=== PATIENT | male | born 1970 | race Hispanic/Latino ===

== ENCOUNTER → 2022-10-27 | Emergency (ER) | payer MEDICARE, BC ==
[~2022-10-27] VITALS: Ht 165.1 cm; Wt 68.0 kg
[~2022-10-27] MED LIST: ALBUTEROL; ALENDRONATE SOD10 MG PEG; ALENDRONATE SOD70 MG GT; ASPIR 8181 MG PEG; BONIVA; CALCIUM PEG; CARBIDOPA/LEVODOPA PEG; FENOFIBRATE160 MG PEG; FLEET ENEMA; GABAPENTIN PEG; GABLOFEN; JEVITY PEG; LACTULOSE20 GM/30 M GT; LANSOPRAZOLE PEG; MIRALAX; TRICOR145 MG GT; TYLENOL PEG; VALPROIC ACID PEG; ZOLOFT50 MG PEG; [UNRECOGNIZED DRUG - OTHER]
== END ==
LOC: ER 19:08
DX: Z43.1 Encounter for attention to gastrostomy (principal); R40.3 Persistent vegetative state; Z87.820 Personal history of traumatic brain injury
CPT/HCPCS: 99283

== ENCOUNTER 2022-10-28 18:06 | Emergency (ER) | payer MEDICARE, BC ==
[~2022-10-28] VITALS: Ht 165.1 cm; Wt 68.0 kg
== END 2022-10-28 18:29 ==
LOC: ER 18:13
DX: Z43.1 Encounter for attention to gastrostomy (principal); E11.9 Type 2 diabetes mellitus without complications; Z87.820 Personal history of traumatic brain injury
CPT/HCPCS: 99283

== ENCOUNTER 2022-11-01 20:23 | Emergency (ER) | payer MEDICARE, BC ==
[~2022-11-01] VITALS: Ht 165.1 cm; Wt 68.0 kg
[2022-11-01] MEDS ORDERED: DIATRIZOATE MEGL/DIATRIZOA SOD 30 ML BTL PO ONE (21:16)
== END 2022-11-01 23:50 | disposition home or self-care (01) ==
LOC: ER 20:26
DX: Z43.1 Encounter for attention to gastrostomy (principal); R50.9 Fever, unspecified; E78.5 Hyperlipidemia, unspecified; G82.50 Quadriplegia, unspecified; R40.3 Persistent vegetative state
CPT/HCPCS: 43762; 74018; 99284; Q9963

== ENCOUNTER 2022-11-05 21:34 | Emergency (ER) | payer MEDICARE, OTHER, BC ==
[~2022-11-05] VITALS: Ht 165.1 cm; Wt 68.0 kg
[2022-11-05 22:02] LABS: BASOPHILS % 0.1 % (0.0-1.0); EOSINOPHILS # (AUTO) 0.2 (0.0-0.4); EOSINOPHILS % 2.1 % (0.0-6.0); HEMATOCRIT 25.7 % (38.2-49.6); LYMPHOCYTES # (AUTO) 2.4 (1.0-3.2); LYMPHOCYTES % 27.2 % (18.0-39.1); MEAN CORPUSCULAR HEMOGLOBIN 28.5 pg (28-32); MEAN CORPUSCULAR HGB CONC 26.1 g/dL (31-35); MEAN CORPUSCULAR VOLUME 109.4 fL (81-99); MONOCYTES # (AUTO) 0.4 (0.2-0.8); MONOCYTES % 4.2 % (4.4-11.3); NEUTROPHILS # (AUTO) 5.6 (2.1-6.9); NEUTROPHILS % 64.1 % (38.7-80.0); PLATELET COUNT 240 x10e3/uL (140-360); RED BLOOD COUNT 2.35 x10e6/uL (4.3-5.7); RED CELL DISTRIBUTION WIDTH 19.7 % (11.7-14.4)
[2022-11-05 22:04] LABS: HEMOGLOBIN 6.7 g/dL (14.0-18.0)
[2022-11-05] MEDS ORDERED: SODIUM CHLORIDE 0.9% 250ML 250 ML IV ONE (22:15)
[2022-11-06] MEDS ORDERED: ACETAMINOPHEN 1000 MG/100 ML IV STA (01:34)
[2022-11-06] MEDS ORDERED: ACETAMINOPHEN 1000 MG/100 ML 100 ML IV ONE (01:40)
[2022-11-06 04:27] VITALS: BP 108/68
== END 2022-11-06 05:49 | disposition home or self-care (01) ==
LOC: ER 21:39
DX: D64.9 Anemia, unspecified (principal); E11.9 Type 2 diabetes mellitus without complications; E78.5 Hyperlipidemia, unspecified; Z79.82 Long term (current) use of aspirin; Z79.899 Other long term (current) drug therapy
CPT/HCPCS: 36415; 85025; 86850; 86900; 86920; 99284; J0131; J7050; P9016

== ENCOUNTER 2022-12-13 22:23 | Inpatient (IN) | payer MEDICARE, OTHER, BC ==
[~2022-12-13] VITALS: Ht 165.1 cm; Wt 54.4 kg
[2022-12-13 22:44] LABS: BASOPHILS % 0.3 % (0.0-1.0); EOSINOPHILS # (AUTO) 0.2 (0.0-0.4); EOSINOPHILS % 1.8 % (0.0-6.0); HEMATOCRIT 24.2 % (38.2-49.6); LYMPHOCYTES # (AUTO) 2.4 (1.0-3.2); LYMPHOCYTES % 24.7 % (18.0-39.1); MEAN CORPUSCULAR HEMOGLOBIN 26.6 pg (28-32); MEAN CORPUSCULAR HGB CONC 27.3 g/dL (31-35); MEAN CORPUSCULAR VOLUME 97.6 fL (81-99); MONOCYTES # (AUTO) 0.5 (0.2-0.8); MONOCYTES % 5.3 % (4.4-11.3); NEUTROPHILS # (AUTO) 6.7 (2.1-6.9); NEUTROPHILS % 67.5 % (38.7-80.0); PLATELET COUNT 541 x10e3/uL (140-360); RED BLOOD COUNT 2.48 x10e6/uL (4.3-5.7); RED CELL DISTRIBUTION WIDTH 15.2 % (11.7-14.4)
[2022-12-13 22:47] LABS: HEMOGLOBIN 6.7 g/dL (14.0-18.0)
[2022-12-13] MEDS ORDERED: SODIUM CHLORIDE 0.9% 250ML 250 ML IV ONE (23:00)
[2022-12-13 23:01] LABS: ALBUMIN 1.9 g/dL (3.5-5.0); ALBUMIN/GLOBULIN RATIO 0.2 (0.8-2.0); ALKALINE PHOSPHATASE 54 IU/L (40-150); ANION GAP 11.8 mmol/L (8-16); BLOOD UREA NITROGEN 36 mg/dL (7-26); BUN/CREATININE RATIO 25 (6-25); CALCIUM 8.7 mg/dL (8.4-10.2); CARBON DIOXIDE 31 mmol/L (22-29); CHLORIDE 97 mmol/L (98-107); CREATININE, SERUM 1.44 mg/dL (0.72-1.25); GLUCOSE 102 mg/dL (74-118); POTASSIUM 4.8 mmol/L (3.5-5.1); SODIUM 135 mmol/L (136-145)
[2022-12-13 23:02] LABS: ALANINE AMINOTRANSFERASE < 6 IU/L (0-55)
[2022-12-14 02:08] LABS: CLARITY,URINE SL CLOUDY (CLEAR); COLOR,URINE YELLOW (YELLOW); KETONES,URINE NEGATIVE (NEGATIVE); LEUKOCYTE ESTERASE ,URINE LARGE (NEGATIVE); NITRITE,URINE NEGATIVE (NEGATIVE); PROTEIN,URINE DIPSTICK 1+ (NEGATIVE); URINE UROBILINOGEN 0.2 mg/dL (0.2 - 1)
[2022-12-14 02:13] LABS: BACTERIA,URINE MODERATE /HPF; EPITHELIAL CELLS,URINE FEW /LPF; WBC,URINE (MAN) >50 /HPF (0-5)
[2022-12-14] MEDS ORDERED: CEFEPIME 2 GM in SODIUM CHLORIDE 0.9% 100 ML IV ONE (04:00)
[2022-12-14] MEDS ORDERED: ONDANSETRON HCL INJ 2MG/ML 2ML 2 MG/ML VIAL IV PRN (04:00)
[2022-12-14] MEDS: SODIUM CHLORIDE 0.9% 1000ML 1,000 ML IV SCH ×3 (04:31→21:03)
[2022-12-14 05:20] VITALS: BP 109/82
[2022-12-14] MEDS ORDERED: SODIUM CHLORIDE 0.9% 250ML 250 ML ONE (06:04)
[2022-12-14 08:00] VITALS: BP 144/89
[2022-12-14 08:22] VITALS: BP 144/89
[2022-12-14] MEDS ORDERED: SINEMET 25-1001 EACH PEG (08:30)
[2022-12-14] MEDS ORDERED: CALCIUM CARBON500 MG PEG (08:30)
[2022-12-14] MEDS ORDERED: SCOPOLAMINE1 EACH TOP (08:30)
[2022-12-14] MEDS ORDERED: FEROSUL325 MG PEG (08:30)
[2022-12-14] MEDS ORDERED: ALBUTEROL1.25 MG/3 NEB (08:30)
[2022-12-14] MEDS ORDERED: ZOLOFT50 MG PEG (08:30)
[2022-12-14] MEDS ORDERED: ACETAMINOP325 MG/10 PO (08:30)
[2022-12-14] MEDS ORDERED: ENULOSE10 GM/15 M PEG (08:30)
[2022-12-14] MEDS ORDERED: ASPIRIN81 MG PEG (08:30)
[2022-12-14] MEDS ORDERED: ACETAMIN-CODE12.5 ML PEG (08:30)
[2022-12-14] MEDS ORDERED: ALENDRONATE SOD70 MG PEG (08:30)
[2022-12-14] MEDS ORDERED: NEURONTIN300 MG PEG (08:30)
[2022-12-14] MEDS ORDERED: DOCUSATE S60 MG/15 M PEG (08:30)
[2022-12-14] MEDS ORDERED: IPRAT-ALBUT 0.5-3 ML INH (08:30)
[2022-12-14] MEDS ORDERED: FAMOTIDINE20 MG PO (08:30)
[2022-12-14] MEDS ORDERED: TIZANIDINE HCL4 M1 PO (08:30)
[2022-12-14] MEDS ORDERED: TRICOR145 MG PEG (08:30)
[2022-12-14] MEDS ORDERED: INSULIN GL100 UNIT/3 SC (08:30)
[2022-12-14] MEDS ORDERED: BISACODYL 10 MG SUPP PR ONE (08:45)
[2022-12-14] MEDS: SCOPOLAMINE 1 MG PATCH TOP SCH (09:00)
[2022-12-14] MEDS: CARBIDOPA/LEVODOPA 25/100 TAB PEG SCH ×2 (09:00→16:21)
[2022-12-14] MEDS: GABAPENTIN 300 MG CAP PEG SCH ×2 (09:00→16:21)
[2022-12-14] MEDS: FAMOTIDINE 20 MG TAB PO SCH ×2 (09:00→16:21)
[2022-12-14] MEDS: OYST-CAL-D 500MG TABLET PEG SCH ×2 (09:00→16:21)
[2022-12-14] MEDS: FERROUS SULFATE 325 MG TAB PEG SCH (09:00)
[2022-12-14] MEDS ORDERED: ACETAMINOPHEN 325 MG/10 ML UDC PO PRN (09:00)
[2022-12-14] MEDS: LACTULOSE SYRUP 20 GM/30 ML UDC PEG SCH (09:00)
[2022-12-14] MEDS ORDERED: ALENDRONATE SODIUM 70 MG TAB PEG SCH (09:00)
[2022-12-14] MEDS ORDERED: ACETAMINOPHEN/CODEINE ELIX 120-12 MG/5 ML UDC PEG PRN (09:30)
[2022-12-14] MEDS ORDERED: ALBUTEROL SULF 0.083% NEB SOLN 3 ML NEB NEB PRN (09:30)
[2022-12-14 10:15] LABS: BASOPHILS % 0.3 % (0.0-1.0); EOSINOPHILS # (AUTO) 0.1 (0.0-0.4); EOSINOPHILS % 0.3 % (0.0-6.0); HEMATOCRIT 38.8 % (38.2-49.6); HEMOGLOBIN 11.7 g/dL (14.0-18.0); LYMPHOCYTES # (AUTO) 1.9 (1.0-3.2); LYMPHOCYTES % 12.9 % (18.0-39.1); MEAN CORPUSCULAR HEMOGLOBIN 28.2 pg (28-32); MEAN CORPUSCULAR HGB CONC 30.2 g/dL (31-35); MEAN CORPUSCULAR VOLUME 93.5 fL (81-99); MONOCYTES # (AUTO) 0.6 (0.2-0.8); MONOCYTES % 4.1 % (4.4-11.3); NEUTROPHILS # (AUTO) 11.7 (2.1-6.9); NEUTROPHILS % 81.8 % (38.7-80.0); PLATELET COUNT 639 x10e3/uL (140-360); RED BLOOD COUNT 4.15 x10e6/uL (4.3-5.7); RED CELL DISTRIBUTION WIDTH 14.7 % (11.7-14.4)
[2022-12-14 10:33] LABS: ALBUMIN/GLOBULIN RATIO 0.2 (0.8-2.0); ANION GAP 15.5 mmol/L (8-16); CREATININE, SERUM 1.33 mg/dL (0.72-1.25); POTASSIUM 4.5 mmol/L (3.5-5.1)
[2022-12-14] MEDS: ALBUTEROL/IPRATROPIUM 3 ML NEB INH SCH ×4 (11:00→23:01)
[2022-12-14 12:26] VITALS: BP 119/86
[2022-12-14] MEDS: CEFEPIME 2 GM in SODIUM CHLORIDE 0.9% 100 ML IV SCH ×2 (13:16→21:02)
[2022-12-14] MEDS: DOCUSATE SODIUM LIQD 100 MG/10 ML UDC PEG SCH (16:21)
[2022-12-14] MEDS: TIZANIDINE HCL 4 MG TAB PO SCH ×2 (16:22→21:03)
[2022-12-14 16:50] VITALS: BP 102/79
[2022-12-14 20:00] VITALS: BP 126/78
[2022-12-14] MEDS: SERTRALINE HCL 50 MG TAB PEG SCH (21:03)
[2022-12-15] VITALS (7 sets, daily range): BP systolic 92–137; BP diastolic 57–85
[2022-12-15] MEDS: ALBUTEROL/IPRATROPIUM 3 ML NEB INH SCH ×6 (02:50→23:30)
[2022-12-15 04:45] LABS: BASOPHILS % 0.3 % (0.0-1.0); EOSINOPHILS # (AUTO) 0.1 (0.0-0.4); EOSINOPHILS % 0.7 % (0.0-6.0); HEMATOCRIT 37.9 % (38.2-49.6); HEMOGLOBIN 11.1 g/dL (14.0-18.0); LYMPHOCYTES # (AUTO) 2.5 (1.0-3.2); LYMPHOCYTES % 16.3 % (18.0-39.1); MEAN CORPUSCULAR HGB CONC 29.3 g/dL (31-35); MEAN CORPUSCULAR VOLUME 95.7 fL (81-99); MONOCYTES # (AUTO) 0.7 (0.2-0.8); MONOCYTES % 4.9 % (4.4-11.3); NEUTROPHILS # (AUTO) 11.7 (2.1-6.9); NEUTROPHILS % 77.5 % (38.7-80.0); PLATELET COUNT 514 x10e3/uL (140-360); RED BLOOD COUNT 3.96 x10e6/uL (4.3-5.7)
[2022-12-15 05:07] LABS: ALBUMIN 1.7 g/dL (3.5-5.0); ALBUMIN/GLOBULIN RATIO 0.2 (0.8-2.0); ALKALINE PHOSPHATASE 53 IU/L (40-150); ANION GAP 12.3 mmol/L (8-16); BLOOD UREA NITROGEN 31 mg/dL (7-26); BUN/CREATININE RATIO 25 (6-25); CALCIUM 8.6 mg/dL (8.4-10.2); CARBON DIOXIDE 25 mmol/L (22-29); CHLORIDE 107 mmol/L (98-107); CREATININE, SERUM 1.23 mg/dL (0.72-1.25); GLUCOSE 127 mg/dL (74-118); POTASSIUM 4.3 mmol/L (3.5-5.1); SODIUM 140 mmol/L (136-145)
[2022-12-15 05:08] LABS: ALANINE AMINOTRANSFERASE < 6 IU/L (0-55)
[2022-12-15] MEDS: TIZANIDINE HCL 4 MG TAB PO SCH ×3 (06:30→21:43)
[2022-12-15] MEDS: FERROUS SULFATE 325 MG TAB PEG SCH (09:45)
[2022-12-15] MEDS: DOCUSATE SODIUM LIQD 100 MG/10 ML UDC PEG SCH ×2 (09:45→17:28)
[2022-12-15] MEDS: OYST-CAL-D 500MG TABLET PEG SCH ×2 (09:45→17:28)
[2022-12-15] MEDS: GABAPENTIN 300 MG CAP PEG SCH ×2 (09:45→17:28)
[2022-12-15] MEDS: CEFEPIME 2 GM in SODIUM CHLORIDE 0.9% 100 ML IV SCH ×2 (09:45→21:42)
[2022-12-15] MEDS: LACTULOSE SYRUP 20 GM/30 ML UDC PEG SCH (09:45)
[2022-12-15] MEDS: CARBIDOPA/LEVODOPA 25/100 TAB PEG SCH ×2 (09:46→17:28)
[2022-12-15] MEDS: FAMOTIDINE 20 MG TAB PO SCH ×2 (09:46→17:28)
[2022-12-15] MEDS: SODIUM CHLORIDE 0.9% 1000ML 1,000 ML IV SCH (17:27)
[2022-12-15] MEDS: SERTRALINE HCL 50 MG TAB PEG SCH (21:42)
[2022-12-16] VITALS (8 sets, daily range): BP systolic 100–119; BP diastolic 58–75
[2022-12-16] MEDS: SODIUM CHLORIDE 0.9% 1000ML 1,000 ML IV SCH (01:35)
[2022-12-16] MEDS: ALBUTEROL/IPRATROPIUM 3 ML NEB INH SCH ×6 (03:02→23:10)
[2022-12-16] MEDS: TIZANIDINE HCL 4 MG TAB PO SCH ×3 (05:31→22:00)
[2022-12-16 06:01] LABS: BASOPHILS # (AUTO) 0.1 (0.0-0.1); BASOPHILS % 0.5 % (0.0-1.0); EOSINOPHILS # (AUTO) 0.3 (0.0-0.4); EOSINOPHILS % 2.7 % (0.0-6.0); HEMATOCRIT 29.6 % (38.2-49.6); HEMOGLOBIN 8.8 g/dL (14.0-18.0); LYMPHOCYTES # (AUTO) 2.6 (1.0-3.2); LYMPHOCYTES % 25.8 % (18.0-39.1); MEAN CORPUSCULAR HEMOGLOBIN 27.8 pg (28-32); MEAN CORPUSCULAR HGB CONC 29.7 g/dL (31-35); MEAN CORPUSCULAR VOLUME 93.4 fL (81-99); MONOCYTES # (AUTO) 0.6 (0.2-0.8); MONOCYTES % 6.2 % (4.4-11.3); NEUTROPHILS # (AUTO) 6.3 (2.1-6.9); NEUTROPHILS % 64.3 % (38.7-80.0); PLATELET COUNT 395 x10e3/uL (140-360); RED BLOOD COUNT 3.17 x10e6/uL (4.3-5.7); RED CELL DISTRIBUTION WIDTH 15.5 % (11.7-14.4)
[2022-12-16 06:19] LABS: ALBUMIN 1.5 g/dL (3.5-5.0); ALBUMIN/GLOBULIN RATIO 0.2 (0.8-2.0); ALKALINE PHOSPHATASE 45 IU/L (40-150); ANION GAP 9.5 mmol/L (8-16); BLOOD UREA NITROGEN 24 mg/dL (7-26); BUN/CREATININE RATIO 24 (6-25); CALCIUM 7.8 mg/dL (8.4-10.2); CARBON DIOXIDE 28 mmol/L (22-29); CHLORIDE 113 mmol/L (98-107); CREATININE, SERUM 1.01 mg/dL (0.72-1.25); GLUCOSE 121 mg/dL (74-118); POTASSIUM 3.5 mmol/L (3.5-5.1); SODIUM 147 mmol/L (136-145)
[2022-12-16 06:22] LABS: ALANINE AMINOTRANSFERASE < 6 IU/L (0-55)
[2022-12-16] MEDS: LACTULOSE SYRUP 20 GM/30 ML UDC PEG SCH (09:41)
[2022-12-16] MEDS: FERROUS SULFATE 325 MG TAB PEG SCH (09:41)
[2022-12-16] MEDS: DOCUSATE SODIUM LIQD 100 MG/10 ML UDC PEG SCH ×2 (09:41→16:21)
[2022-12-16] MEDS: FAMOTIDINE 20 MG TAB PO SCH ×2 (09:42→16:22)
[2022-12-16] MEDS: CEFEPIME 2 GM in SODIUM CHLORIDE 0.9% 100 ML IV SCH ×2 (09:42→21:00)
[2022-12-16] MEDS: GABAPENTIN 300 MG CAP PEG SCH ×2 (09:42→16:21)
[2022-12-16] MEDS: OYST-CAL-D 500MG TABLET PEG SCH ×2 (09:44→16:22)
[2022-12-16] MEDS: CARBIDOPA/LEVODOPA 25/100 TAB PEG SCH ×2 (09:44→16:22)
[2022-12-16] MEDS ORDERED: POTASSIUM CHLORIDE 10MEQ EA PO ONE (09:45)
[2022-12-16] MEDS ORDERED: ONDANSETRON HCL 4 MG ORAL DISINTEGRATING TAB PO PRN (11:30)
[2022-12-16] MEDS: SERTRALINE HCL 50 MG TAB PEG SCH (21:00)
[2022-12-17] VITALS: BP 129/90
[2022-12-17] MEDS: ALBUTEROL/IPRATROPIUM 3 ML NEB INH SCH ×3 (03:20→10:59)
[2022-12-17 04:54] LABS: BASOPHILS # (AUTO) 0.1 (0.0-0.1); BASOPHILS % 0.6 % (0.0-1.0); EOSINOPHILS # (AUTO) 0.4 (0.0-0.4); HEMATOCRIT 31.2 % (38.2-49.6); HEMOGLOBIN 9.2 g/dL (14.0-18.0); LYMPHOCYTES # (AUTO) 2.7 (1.0-3.2); LYMPHOCYTES % 31.9 % (18.0-39.1); MEAN CORPUSCULAR HEMOGLOBIN 27.7 pg (28-32); MEAN CORPUSCULAR HGB CONC 29.5 g/dL (31-35); MONOCYTES # (AUTO) 0.5 (0.2-0.8); MONOCYTES % 6.2 % (4.4-11.3); NEUTROPHILS # (AUTO) 4.7 (2.1-6.9); NEUTROPHILS % 55.8 % (38.7-80.0); PLATELET COUNT 421 x10e3/uL (140-360); RED BLOOD COUNT 3.32 x10e6/uL (4.3-5.7); RED CELL DISTRIBUTION WIDTH 15.9 % (11.7-14.4)
[2022-12-17 05:14] LABS: ALBUMIN 1.7 g/dL (3.5-5.0); ALBUMIN/GLOBULIN RATIO 0.2 (0.8-2.0); ANION GAP 11.1 mmol/L (8-16); CALCIUM 8.9 mg/dL (8.4-10.2); CREATININE, SERUM 1.01 mg/dL (0.72-1.25); POTASSIUM 4.1 mmol/L (3.5-5.1)
[2022-12-17] MEDS: TIZANIDINE HCL 4 MG TAB PO SCH (05:57)
[2022-12-17] MEDS ORDERED: Vancomycin IV 1 GM in SODIUM CHLORIDE 0.9% 250ML 250 ML IV SCH (07:45)
[2022-12-17] MEDS: CEFEPIME 2 GM in SODIUM CHLORIDE 0.9% 100 ML IV SCH (08:05)
[2022-12-17 08:14] VITALS: BP 100/72
[2022-12-17] MEDS ORDERED: CEFEPIME 2 GM in SODIUM CHLORIDE 0.9% 100 ML IV SCH (09:00)
[2022-12-17] MEDS: LACTULOSE SYRUP 20 GM/30 ML UDC PEG SCH (10:20)
[2022-12-17] MEDS: DOCUSATE SODIUM LIQD 100 MG/10 ML UDC PEG SCH (10:20)
[2022-12-17] MEDS: FERROUS SULFATE 325 MG TAB PEG SCH (10:20)
[2022-12-17] MEDS: SCOPOLAMINE 1 MG PATCH TOP SCH (10:21)
[2022-12-17] MEDS: FAMOTIDINE 20 MG TAB PO SCH (10:21)
[2022-12-17] MEDS: GABAPENTIN 300 MG CAP PEG SCH (10:21)
[2022-12-17] MEDS: OYST-CAL-D 500MG TABLET PEG SCH (10:21)
[2022-12-17] MEDS: CARBIDOPA/LEVODOPA 25/100 TAB PEG SCH (10:21)
== END 2022-12-17 11:27 | DRG 871 ==
LOC: ER 22:30 → ERHOLD 12-14 03:59 → MED/SURG 12-14 05:14
PROVIDERS: ADMIT Internal Medicine; ATTEND Internal Medicine
PROC: 30233N1 Transfusion of Nonautologous Red Blood Cells into Peripheral Vein, Percutaneous Approach (ICD-10-PCS; principal; 2022-12-14)
PROC: 3E03329 Introduction of Other Anti-infective into Peripheral Vein, Percutaneous Approach (ICD-10-PCS; 2022-12-14)
DX: A41.9 Sepsis, unspecified organism (principal); E43 Unspecified severe protein-calorie malnutrition; G82.50 Quadriplegia, unspecified; J15.6 Pneumonia due to other Gram-negative bacteria; D62 Acute posthemorrhagic anemia; N17.9 Acute kidney failure, unspecified; K59.2 Neurogenic bowel, not elsewhere classified; N13.2 Hydronephrosis with renal and ureteral calculous obstruction; D68.8 Other specified coagulation defects; N39.0 Urinary tract infection, site not specified; R31.0 Gross hematuria; Z87.820 Personal history of traumatic brain injury; Z68.20 Body mass index [BMI] 20.0-20.9, adult; R33.9 Retention of urine, unspecified; N31.9 Neuromuscular dysfunction of bladder, unspecified; K59.00 Constipation, unspecified; E27.9 Disorder of adrenal gland, unspecified; Z20.822 Contact with and (suspected) exposure to COVID-19; E11.69 Type 2 diabetes mellitus with other specified complication; D63.8 Anemia in other chronic diseases classified elsewhere; Z93.0 Tracheostomy status; I12.9 Hypertensive chronic kidney disease with stage 1 through stage 4 chronic kidney disease, or unspecified chronic kidney disease; E11.22 Type 2 diabetes mellitus with diabetic chronic kidney disease; N18.9 Chronic kidney disease, unspecified
CPT/HCPCS: 36415; 51700; 71045; 74176; 80053; 81001; 82948; 83605; 84165; 85025; 86850; 86900; 86920; 87040; 87070; 87086; 87186; 87205; 93005; 94799; 96361; 99252; 99284; J0692; J3370; J7030; J7050; P9016

== ENCOUNTER 2022-12-26 17:47 | Inpatient (IN) | payer MEDICARE, OTHER, BC ==
[2022-12-26] VITALS (14 sets, daily range): BP systolic 95–113; BP diastolic 70–85
[~2022-12-26] VITALS: Ht 165.1 cm; Wt 52.4 kg
[~2022-12-26 17:47] MED LIST changes: +ACETAMIN-CODE12.5 ML PEG; +ACETAMINOP325 MG/10 PO; +ALBUTEROL1.25 MG/3 NEB; +ALENDRONATE SOD70 MG PEG; +ASPIRIN81 MG PEG; +CALCIUM CARBON500 MG PEG; +DOCUSATE S60 MG/15 M PEG; +ENULOSE10 GM/15 M PEG; +FAMOTIDINE20 MG PO; +FEROSUL325 MG PEG; +INSULIN GL100 UNIT/3 SC; +IPRAT-ALBUT 0.5-3 ML INH; +NEURONTIN300 MG PEG; +SCOPOLAMINE1 EACH TOP; +SINEMET 25-1001 EACH PEG; +TIZANIDINE HCL4 M1 PO; +TRICOR145 MG PEG
[2022-12-26] MEDS ORDERED: ACETAMINOPHEN 1000 MG/100 ML IV ONE (18:02)
[2022-12-26] MEDS ORDERED: SODIUM CHLORIDE 0.9% IV ONE (18:15)
[2022-12-26] MEDS: Vancomycin IV 1 GM in SODIUM CHLORIDE 0.9% 250ML 250 ML IV SCH ×2 (18:15→19:00)
[2022-12-26] MEDS ORDERED: SODIUM CHLORIDE 0.9% 250ML 250 ML IV ONE (18:45)
[2022-12-26] MEDS ORDERED: SODIUM CHLORIDE 0.9% 1000ML 1,000 ML IV ONE ×2 (18:45)
[2022-12-26 18:50] LABS: BASOPHILS % 0.2 % (0.0-1.0); HEMATOCRIT 34.6 % (38.2-49.6); HEMOGLOBIN 9.9 g/dL (14.0-18.0); LYMPHOCYTES # (AUTO) 0.6 (1.0-3.2); LYMPHOCYTES % 2.9 % (18.0-39.1); MEAN CORPUSCULAR HGB CONC 28.6 g/dL (31-35); MEAN CORPUSCULAR VOLUME 97.7 fL (81-99); MONOCYTES # (AUTO) 0.8 (0.2-0.8); MONOCYTES % 3.9 % (4.4-11.3); NEUTROPHILS # (AUTO) 19.8 (2.1-6.9); NEUTROPHILS % 92.3 % (38.7-80.0); PLATELET COUNT 511 x10e3/uL (140-360); RED BLOOD COUNT 3.54 x10e6/uL (4.3-5.7); RED CELL DISTRIBUTION WIDTH 15.5 % (11.7-14.4)
[2022-12-26 19:01] LABS: INR 1.24; PROTHROMBIN TIME 15.8 seconds (11.9-14.5)
[2022-12-26 19:14] LABS: ALANINE AMINOTRANSFERASE < 6 IU/L (0-55); ALBUMIN 2.4 g/dL (3.5-5.0); ALBUMIN/GLOBULIN RATIO 0.3 (0.8-2.0); ALKALINE PHOSPHATASE 57 IU/L (40-150); ANION GAP 14.2 mmol/L (8-16); BLOOD UREA NITROGEN 20 mg/dL (7-26); BUN/CREATININE RATIO 23 (6-25); CARBON DIOXIDE 27 mmol/L (22-29); CHLORIDE 100 mmol/L (98-107); CREATININE, SERUM 0.86 mg/dL (0.72-1.25); GLUCOSE 98 mg/dL (74-118); POTASSIUM 4.2 mmol/L (3.5-5.1); SODIUM 137 mmol/L (136-145)
[2022-12-26 19:39] LABS: CLARITY,URINE CLOUDY (CLEAR); COLOR,URINE YELLOW (YELLOW); KETONES,URINE 1+ (NEGATIVE); LEUKOCYTE ESTERASE ,URINE SMALL (NEGATIVE); NITRITE,URINE NEGATIVE (NEGATIVE); PROTEIN,URINE DIPSTICK >=300 (NEGATIVE); URINE UROBILINOGEN 0.2 mg/dL (0.2 - 1)
[2022-12-26 19:50] LABS: BACTERIA,URINE MODERATE /HPF; RBC,URINE 0-5 /HPF (0-5)
[2022-12-26] MEDS: NOREPINEPHRINE 8 MG/D5W 250 ML 250 ML IV SCH (19:57)
[2022-12-26] MEDS ORDERED: ALBUTEROL/IPRATROPIUM 3 ML NEB INH PRN (20:00)
[2022-12-26] MEDS ORDERED: DEXTROSE 50% SYRINGE 50 ML IV PRN (20:00)
[2022-12-26] MEDS ORDERED: ACETAMINOPHEN 325 MG/10 ML UDC PO PRN (20:00)
[2022-12-26] MEDS ORDERED: ASPIRIN 81 MG CHEW TAB PO ONE (20:00)
[2022-12-26 20:18] LABS: CREATINE KINASE MB 0.6 ng/mL (0-5.0)
[2022-12-26] MEDS: INSULIN REGULAR, HUMAN 100 UNIT/1 ML SQ SCH (20:28)
[2022-12-26] MEDS: SODIUM CHLORIDE 0.9% 1000ML 1,000 ML IV SCH (20:28)
[2022-12-26] MEDS: INSULIN GLARGINE 100 UNITS/ML VIAL SC SCH (20:28)
[2022-12-27] VITALS (70 sets, daily range): BP systolic 92–124; BP diastolic 57–95
[2022-12-27] MEDS: SODIUM CHLORIDE 0.9% 1000ML 1,000 ML IV SCH (05:07)
[2022-12-27] MEDS: METRONIDAZOLE 500MG/NS 100ML 100 ML IV SCH ×3 (05:07→21:32)
[2022-12-27 06:48] LABS: ALBUMIN 1.8 g/dL (3.5-5.0); ALBUMIN/GLOBULIN RATIO 0.3 (0.8-2.0); ANION GAP 6.8 mmol/L (8-16); CREATININE, SERUM 0.61 mg/dL (0.72-1.25); POTASSIUM 3.8 mmol/L (3.5-5.1)
[2022-12-27 06:55] LABS: CREATINE KINASE MB 1.4 ng/mL (0-5.0)
[2022-12-27 06:58] LABS: BASOPHILS # (AUTO) 0.1 (0.0-0.1); BASOPHILS % 0.3 % (0.0-1.0); EOSINOPHILS % 0.2 % (0.0-6.0); HEMATOCRIT 27.9 % (38.2-49.6); LYMPHOCYTES # (AUTO) 2.6 (1.0-3.2); LYMPHOCYTES % 16.1 % (18.0-39.1); MEAN CORPUSCULAR HEMOGLOBIN 28.2 pg (28-32); MEAN CORPUSCULAR HGB CONC 28.7 g/dL (31-35); MEAN CORPUSCULAR VOLUME 98.2 fL (81-99); MONOCYTES # (AUTO) 0.9 (0.2-0.8); MONOCYTES % 5.6 % (4.4-11.3); NEUTROPHILS # (AUTO) 12.3 (2.1-6.9); NEUTROPHILS % 77.4 % (38.7-80.0); PLATELET COUNT 423 x10e3/uL (140-360); RED BLOOD COUNT 2.84 x10e6/uL (4.3-5.7); RED CELL DISTRIBUTION WIDTH 15.3 % (11.7-14.4)
[2022-12-27] MEDS: INSULIN REGULAR, HUMAN 100 UNIT/1 ML SQ SCH ×4 (07:30→21:00)
[2022-12-27] MEDS: CARBIDOPA/LEVODOPA 25/100 TAB PEG SCH ×2 (10:03→18:14)
[2022-12-27] MEDS: FAMOTIDINE 20 MG TAB PO SCH ×2 (10:04→18:14)
[2022-12-27] MEDS: LACTULOSE SYRUP 20 GM/30 ML UDC PEG SCH (11:04)
[2022-12-27 15:37] LABS: CREATINE KINASE MB 1.2 ng/mL (0-5.0)
[2022-12-27] MEDS: ENOXAPARIN SOD INJ 40 MG/0.4 ML SYR SC SCH (18:14)
[2022-12-27] MEDS: NOREPINEPHRINE 8 MG/D5W 250 ML 250 ML IV SCH (19:30)
[2022-12-27] MEDS: Vancomycin IV 1 GM in SODIUM CHLORIDE 0.9% 250ML 250 ML IV SCH (20:57)
[2022-12-27] MEDS: INSULIN GLARGINE 100 UNITS/ML VIAL SC SCH (21:00)
[2022-12-28] VITALS (14 sets, daily range): BP systolic 95–136; BP diastolic 64–79
[2022-12-28] MEDS: METRONIDAZOLE 500MG/NS 100ML 100 ML IV SCH ×3 (05:09→21:08)
[2022-12-28] MEDS: Vancomycin IV 1 GM in SODIUM CHLORIDE 0.9% 250ML 250 ML IV SCH (05:09)
[2022-12-28] MEDS: INSULIN REGULAR, HUMAN 100 UNIT/1 ML SQ SCH ×4 (07:30→21:00)
[2022-12-28 07:36] LABS: BASOPHILS % 0.3 % (0.0-1.0); EOSINOPHILS # (AUTO) 0.2 (0.0-0.4); HEMATOCRIT 26.7 % (38.2-49.6); HEMOGLOBIN 7.5 g/dL (14.0-18.0); LYMPHOCYTES # (AUTO) 2.3 (1.0-3.2); MEAN CORPUSCULAR HEMOGLOBIN 28.1 pg (28-32); MEAN CORPUSCULAR HGB CONC 28.1 g/dL (31-35); MONOCYTES # (AUTO) 0.5 (0.2-0.8); MONOCYTES % 6.7 % (4.4-11.3); NEUTROPHILS # (AUTO) 4.9 (2.1-6.9); NEUTROPHILS % 61.6 % (38.7-80.0); PLATELET COUNT 357 x10e3/uL (140-360); RED BLOOD COUNT 2.67 x10e6/uL (4.3-5.7); RED CELL DISTRIBUTION WIDTH 15.3 % (11.7-14.4)
[2022-12-28 07:48] LABS: ALBUMIN 1.8 g/dL (3.5-5.0); ALBUMIN/GLOBULIN RATIO 0.3 (0.8-2.0); ANION GAP 9.1 mmol/L (8-16); CALCIUM 8.1 mg/dL (8.4-10.2); CREATININE, SERUM 0.55 mg/dL (0.72-1.25); POTASSIUM 3.1 mmol/L (3.5-5.1)
[2022-12-28] MEDS ORDERED: POTASSIUM CHLORIDE 20MEQ/100ML 200 ML IV ONE (08:15)
[2022-12-28] MEDS: FERROUS SULFATE 300 MG/5 ML LIQD PEG SCH ×2 (08:37→09:08)
[2022-12-28] MEDS: LACTULOSE SYRUP 20 GM/30 ML UDC PEG SCH (08:39)
[2022-12-28] MEDS: CARBIDOPA/LEVODOPA 25/100 TAB PEG SCH ×2 (08:40→17:41)
[2022-12-28] MEDS: FAMOTIDINE 20 MG TAB PO SCH ×2 (08:41→17:41)
[2022-12-28] MEDS: ENOXAPARIN SOD INJ 40 MG/0.4 ML SYR SC SCH (17:42)
[2022-12-28] MEDS ORDERED: Vancomycin IV 1 GM in SODIUM CHLORIDE 0.9% 250ML 250 ML IV SCH (18:00)
[2022-12-28] MEDS: NOREPINEPHRINE 8 MG/D5W 250 ML 250 ML IV SCH (19:30)
[2022-12-28] MEDS: INSULIN GLARGINE 100 UNITS/ML VIAL SC SCH (21:00)
[2022-12-29] VITALS (17 sets, daily range): BP systolic 100–127; BP diastolic 69–95
[2022-12-29] MEDS: METRONIDAZOLE 500MG/NS 100ML 100 ML IV SCH ×3 (05:19→21:24)
[2022-12-29 06:32] LABS: BASOPHILS % 0.6 % (0.0-1.0); EOSINOPHILS # (AUTO) 0.2 (0.0-0.4); EOSINOPHILS % 3.6 % (0.0-6.0); HEMATOCRIT 26.3 % (38.2-49.6); HEMOGLOBIN 7.4 g/dL (14.0-18.0); LYMPHOCYTES # (AUTO) 1.7 (1.0-3.2); LYMPHOCYTES % 31.4 % (18.0-39.1); MEAN CORPUSCULAR HEMOGLOBIN 27.8 pg (28-32); MEAN CORPUSCULAR HGB CONC 28.1 g/dL (31-35); MEAN CORPUSCULAR VOLUME 98.9 fL (81-99); MONOCYTES # (AUTO) 0.4 (0.2-0.8); NEUTROPHILS % 56.8 % (38.7-80.0); PLATELET COUNT 388 x10e3/uL (140-360); RED BLOOD COUNT 2.66 x10e6/uL (4.3-5.7); RED CELL DISTRIBUTION WIDTH 15.1 % (11.7-14.4)
[2022-12-29 06:55] LABS: ALBUMIN 1.9 g/dL (3.5-5.0); ALBUMIN/GLOBULIN RATIO 0.3 (0.8-2.0); ANION GAP 9.3 mmol/L (8-16); CALCIUM 8.1 mg/dL (8.4-10.2); CREATININE, SERUM 0.58 mg/dL (0.72-1.25); POTASSIUM 3.3 mmol/L (3.5-5.1)
[2022-12-29] MEDS ORDERED: Vancomycin IV 1.25 GM in SODIUM CHLORIDE 0.9% 250ML 250 ML IV SCH (07:00)
[2022-12-29] MEDS: INSULIN REGULAR, HUMAN 100 UNIT/1 ML SQ SCH ×4 (07:30→21:00)
[2022-12-29] MEDS ORDERED: POTASSIUM CHLORIDE 20MEQ/100ML 100 ML IV ONE (08:15)
[2022-12-29] MEDS: LACTULOSE SYRUP 20 GM/30 ML UDC PEG SCH (08:54)
[2022-12-29] MEDS: FAMOTIDINE 20 MG TAB PO SCH ×2 (08:54→17:50)
[2022-12-29] MEDS: CARBIDOPA/LEVODOPA 25/100 TAB PEG SCH ×2 (08:54→17:49)
[2022-12-29] MEDS: FERROUS SULFATE 300 MG/5 ML LIQD PEG SCH (08:57)
[2022-12-29] MEDS: ENOXAPARIN SOD INJ 40 MG/0.4 ML SYR SC SCH (17:50)
[2022-12-29] MEDS: INSULIN GLARGINE 100 UNITS/ML VIAL SC SCH (21:00)
[2022-12-30] VITALS (9 sets, daily range): BP systolic 102–133; BP diastolic 71–93
[2022-12-30] MEDS: METRONIDAZOLE 500MG/NS 100ML 100 ML IV SCH ×2 (06:30→13:40)
[2022-12-30 06:36] LABS: BASOPHILS % 0.5 % (0.0-1.0); EOSINOPHILS # (AUTO) 0.3 (0.0-0.4); EOSINOPHILS % 3.4 % (0.0-6.0); HEMATOCRIT 29.6 % (38.2-49.6); HEMOGLOBIN 8.4 g/dL (14.0-18.0); LYMPHOCYTES # (AUTO) 2.5 (1.0-3.2); LYMPHOCYTES % 29.8 % (18.0-39.1); MEAN CORPUSCULAR HEMOGLOBIN 27.8 pg (28-32); MEAN CORPUSCULAR HGB CONC 28.4 g/dL (31-35); MONOCYTES # (AUTO) 0.4 (0.2-0.8); MONOCYTES % 4.9 % (4.4-11.3); NEUTROPHILS # (AUTO) 5.1 (2.1-6.9); PLATELET COUNT 398 x10e3/uL (140-360); RED BLOOD COUNT 3.02 x10e6/uL (4.3-5.7); RED CELL DISTRIBUTION WIDTH 15.3 % (11.7-14.4)
[2022-12-30 07:01] LABS: ANION GAP 8.8 mmol/L (8-16); CALCIUM 9.1 mg/dL (8.4-10.2); CREATININE, SERUM 0.57 mg/dL (0.72-1.25); POTASSIUM 3.8 mmol/L (3.5-5.1)
[2022-12-30] MEDS: INSULIN REGULAR, HUMAN 100 UNIT/1 ML SQ SCH ×2 (07:25→11:30)
[2022-12-30] MEDS: FAMOTIDINE 20 MG TAB PO SCH (08:48)
[2022-12-30] MEDS: CARBIDOPA/LEVODOPA 25/100 TAB PEG SCH (08:48)
[2022-12-30] MEDS: LACTULOSE SYRUP 20 GM/30 ML UDC PEG SCH (08:48)
[2022-12-30] MEDS: FERROUS SULFATE 300 MG/5 ML LIQD PEG SCH (09:00)
== END 2022-12-30 15:28 | DRG 871 ==
LOC: ER 17:52 → ERHOLD 19:50 → ICU 21:08
PROVIDERS: ADMIT Internal Medicine; ATTEND Internal Medicine
PROC: 06HY33Z Insertion of Infusion Device into Lower Vein, Percutaneous Approach (ICD-10-PCS; principal; 2022-12-26)
PROC: 3E04329 Introduction of Other Anti-infective into Central Vein, Percutaneous Approach (ICD-10-PCS; 2022-12-26)
PROC: 3E04329 Introduction of Other Anti-infective into Central Vein, Percutaneous Approach (ICD-10-PCS; 2022-12-26)
PROC: 3E04329 Introduction of Other Anti-infective into Central Vein, Percutaneous Approach (ICD-10-PCS; 2022-12-26)
PROC: 02HV33Z Insertion of Infusion Device into Superior Vena Cava, Percutaneous Approach (ICD-10-PCS; 2022-12-27)
PROC: 3E04329 Introduction of Other Anti-infective into Central Vein, Percutaneous Approach (ICD-10-PCS; 2022-12-27)
PROC: 3E04329 Introduction of Other Anti-infective into Central Vein, Percutaneous Approach (ICD-10-PCS; 2022-12-27)
PROC: 3E04329 Introduction of Other Anti-infective into Central Vein, Percutaneous Approach (ICD-10-PCS; 2022-12-27)
PROC: 3E04329 Introduction of Other Anti-infective into Central Vein, Percutaneous Approach (ICD-10-PCS; 2022-12-28)
PROC: 3E04329 Introduction of Other Anti-infective into Central Vein, Percutaneous Approach (ICD-10-PCS; 2022-12-28)
PROC: 3E04329 Introduction of Other Anti-infective into Central Vein, Percutaneous Approach (ICD-10-PCS; 2022-12-28)
PROC: 3E04329 Introduction of Other Anti-infective into Central Vein, Percutaneous Approach (ICD-10-PCS; 2022-12-29)
PROC: 3E04329 Introduction of Other Anti-infective into Central Vein, Percutaneous Approach (ICD-10-PCS; 2022-12-29)
PROC: 3E04329 Introduction of Other Anti-infective into Central Vein, Percutaneous Approach (ICD-10-PCS; 2022-12-30)
DX: A41.9 Sepsis, unspecified organism (principal); G82.50 Quadriplegia, unspecified; R65.21 Severe sepsis with septic shock; J69.0 Pneumonitis due to inhalation of food and vomit; J96.11 Chronic respiratory failure with hypoxia; E44.0 Moderate protein-calorie malnutrition; E78.5 Hyperlipidemia, unspecified; R53.81 Other malaise; R62.7 Adult failure to thrive; D63.8 Anemia in other chronic diseases classified elsewhere; N20.0 Calculus of kidney; E11.9 Type 2 diabetes mellitus without complications; M81.0 Age-related osteoporosis without current pathological fracture; G20 Parkinson's disease; R33.9 Retention of urine, unspecified; Z96.0 Presence of urogenital implants; Z68.1 Body mass index [BMI] 19.9 or less, adult; Z87.820 Personal history of traumatic brain injury; Z93.0 Tracheostomy status; Z86.14 Personal history of Methicillin resistant Staphylococcus aureus infection; Z87.440 Personal history of urinary (tract) infections; Z79.4 Long term (current) use of insulin; Z79.899 Other long term (current) drug therapy; Z98.890 Other specified postprocedural states; Z96.89 Presence of other specified functional implants; Z87.448 Personal history of other diseases of urinary system
CPT/HCPCS: 36415; 36569; 71045; 80048; 80053; 80202; 81001; 82550; 82553; 82948; 83605; 84484; 85025; 85610; 85730; 87040; 87070; 87086; 87186; 87205; 93005; 94799; 99252; 99285; J0456; J0692; J1650; J1815; J3370; J3480; J7030; J7050

== ENCOUNTER 2023-01-10 21:34 | Inpatient (IN) | payer MEDICARE, OTHER, BC ==
[~2023-01-10] VITALS: Ht 165.1 cm; Wt 53.1 kg
[2023-01-10] MEDS ORDERED: Vancomycin IV 1 GM in SODIUM CHLORIDE 0.9% 250ML 250 ML IV STA (21:52)
[2023-01-10] MEDS ORDERED: CEFEPIME 2 GM in SODIUM CHLORIDE 0.9% 100 ML IV STA (21:52)
[2023-01-10] MEDS ORDERED: SODIUM CHLORIDE 0.9% IV SCH (22:00)
[2023-01-10 22:15] LABS: BASOPHILS % 0.2 % (0.0-1.0); EOSINOPHILS % 0.1 % (0.0-6.0); HEMATOCRIT 39.2 % (38.2-49.6); HEMOGLOBIN 11.2 g/dL (14.0-18.0); LYMPHOCYTES # (AUTO) 0.6 (1.0-3.2); LYMPHOCYTES % 2.9 % (18.0-39.1); MEAN CORPUSCULAR HEMOGLOBIN 28.6 pg (28-32); MEAN CORPUSCULAR HGB CONC 28.6 g/dL (31-35); MONOCYTES # (AUTO) 0.6 (0.2-0.8); MONOCYTES % 3.3 % (4.4-11.3); NEUTROPHILS % 92.9 % (38.7-80.0); PLATELET COUNT 387 x10e3/uL (140-360); RED BLOOD COUNT 3.92 x10e6/uL (4.3-5.7); RED CELL DISTRIBUTION WIDTH 15.4 % (11.7-14.4)
[2023-01-10 22:22] LABS: INR 1.13; PROTHROMBIN TIME 14.7 seconds (11.9-14.5)
[2023-01-10 22:23] LABS: PARTIAL THROMBOPLASTIN TIME 32.9 seconds (23.8-35.5)
[2023-01-10 22:32] LABS: ALBUMIN/GLOBULIN RATIO 0.4 (0.8-2.0); ANION GAP 17.5 mmol/L (8-16); CALCIUM 9.9 mg/dL (8.4-10.2); CREATININE, SERUM 0.74 mg/dL (0.72-1.25); POTASSIUM 4.5 mmol/L (3.5-5.1)
[2023-01-10] MEDS ORDERED: AMIODARONE 900MG 900 MG in Premix Bag 1 BAG IV SCH (22:45)
[2023-01-10] MEDS ORDERED: AMIODARONE HCL 150 MG/100 ML BAG IV ONE (22:45)
[2023-01-10] MEDS ORDERED: SODIUM CHLORIDE 0.9% 1000ML 2,000 ML ONE (22:57)
[2023-01-10] MEDS ORDERED: AMIODARONE HCL 150 MG/100 ML BAG IV STA (22:58)
[2023-01-10] MEDS ORDERED: AMIODARONE 900MG 900 MG in Premix Bag 1 BAG IV STA (22:58)
[2023-01-10] MEDS ORDERED: SODIUM CHLORIDE 0.9% 1000ML 1,560 ML IV STA (23:20)
[2023-01-10] MEDS ORDERED: AMIODARONE 900MG 500 ML IV ONE (23:44)
[2023-01-11] VITALS (46 sets, daily range): BP systolic 92–132; BP diastolic 60–111
[2023-01-11] MEDS ORDERED: SODIUM CHLORIDE 0.9% 1000ML 1,000 ML IV SCH (00:15)
[2023-01-11 01:05] LABS: CLARITY,URINE HAZY (CLEAR); COLOR,URINE YELLOW (YELLOW); KETONES,URINE 1+ (NEGATIVE); LEUKOCYTE ESTERASE ,URINE SMALL (NEGATIVE); NITRITE,URINE NEGATIVE (NEGATIVE); PROTEIN,URINE DIPSTICK 2+ (NEGATIVE); URINE UROBILINOGEN 0.2 mg/dL (0.2 - 1)
[2023-01-11 01:10] LABS: BACTERIA,URINE MANY /HPF; EPITHELIAL CELLS,URINE FEW /LPF; WBC,URINE (MAN) >50 /HPF (0-5); YEAST,URINE MODERATE
[2023-01-11] MEDS ORDERED: MELATONIN 3 MG TAB PO PRN (04:15)
[2023-01-11] MEDS ORDERED: GUAIFENESIN/DEXTROMETHORPHAN LIQD 5 ML UDC PO PRN (04:15)
[2023-01-11] MEDS ORDERED: MAGNESIUM/ALUMINUM/SIMETHICONE 30 ML UDC PO PRN (04:15)
[2023-01-11] MEDS ORDERED: HYDRALAZINE HCL 20 MG/ML VIAL IV PRN (04:15)
[2023-01-11] MEDS ORDERED: DEXTROSE 50% SYRINGE 50 ML IV PRN (04:15)
[2023-01-11] MEDS ORDERED: ENOXAPARIN SOD INJ 60 MG/0.6 ML SYR SC SCH (05:00)
[2023-01-11] MEDS: TIZANIDINE HCL 4 MG TAB PO SCH ×3 (05:44→21:05)
[2023-01-11] MEDS: INSULIN REGULAR, HUMAN 100 UNIT/1 ML SQ SCH ×3 (05:45→17:21)
[2023-01-11] MEDS ORDERED: DOCUSATE SODIUM 100 MG CAP PO SCH (09:00)
[2023-01-11] MEDS: CARBIDOPA/LEVODOPA 25/100 TAB PEG SCH ×2 (10:44→17:07)
[2023-01-11] MEDS: GABAPENTIN 300 MG CAP PEG SCH ×2 (10:44→17:07)
[2023-01-11] MEDS: FAMOTIDINE 20 MG TAB PO SCH ×2 (10:45→17:08)
[2023-01-11] MEDS: LACTULOSE SYRUP 20 GM/30 ML UDC PEG SCH (10:49)
[2023-01-11] MEDS ORDERED: BISACODYL 10 MG SUPP PR ONE (12:00)
[2023-01-11 12:39] LABS: BASOPHILS % 0.4 % (0.0-1.0); EOSINOPHILS # (AUTO) 0.1 (0.0-0.4); EOSINOPHILS % 1.1 % (0.0-6.0); HEMATOCRIT 32.4 % (38.2-49.6); HEMOGLOBIN 9.3 g/dL (14.0-18.0); LYMPHOCYTES # (AUTO) 1.7 (1.0-3.2); LYMPHOCYTES % 21.8 % (18.0-39.1); MEAN CORPUSCULAR HEMOGLOBIN 28.6 pg (28-32); MEAN CORPUSCULAR HGB CONC 28.7 g/dL (31-35); MEAN CORPUSCULAR VOLUME 99.7 fL (81-99); MONOCYTES # (AUTO) 0.4 (0.2-0.8); MONOCYTES % 4.7 % (4.4-11.3); NEUTROPHILS # (AUTO) 5.7 (2.1-6.9); NEUTROPHILS % 71.7 % (38.7-80.0); PLATELET COUNT 281 x10e3/uL (140-360); RED BLOOD COUNT 3.25 x10e6/uL (4.3-5.7)
[2023-01-11 12:56] LABS: ANION GAP 8.7 mmol/L (8-16); CALCIUM 8.9 mg/dL (8.4-10.2); CREATININE, SERUM 0.66 mg/dL (0.72-1.25); POTASSIUM 3.7 mmol/L (3.5-5.1)
[2023-01-11] MEDS ORDERED: ENOXAPARIN SOD INJ 40 MG/0.4 ML SYR SC SCH (17:00)
[2023-01-11] MEDS: AMIODARONE HCL 200 MG TAB PO SCH (17:08)
[2023-01-11] MEDS: ENOXAPARIN 30 MG/0.3 ML SYR SC SCH (17:08)
[2023-01-11] MEDS: SERTRALINE HCL 50 MG TAB PEG SCH (20:27)
[2023-01-11] MEDS: DOCUSATE SODIUM LIQD 100 MG/10 ML UDC PO SCH (20:28)
[2023-01-11] MEDS ORDERED: Vancomycin IV 1 GM in SODIUM CHLORIDE 0.9% 250ML 250 ML IV ONE (21:15)
[2023-01-12] VITALS (19 sets, daily range): BP systolic 94–137; BP diastolic 62–80
[2023-01-12 05:27] LABS: BASOPHILS % 0.6 % (0.0-1.0); EOSINOPHILS # (AUTO) 0.2 (0.0-0.4); EOSINOPHILS % 3.8 % (0.0-6.0); HEMATOCRIT 29.4 % (38.2-49.6); HEMOGLOBIN 8.4 g/dL (14.0-18.0); LYMPHOCYTES % 37.4 % (18.0-39.1); MEAN CORPUSCULAR HEMOGLOBIN 28.5 pg (28-32); MEAN CORPUSCULAR HGB CONC 28.6 g/dL (31-35); MEAN CORPUSCULAR VOLUME 99.7 fL (81-99); MONOCYTES # (AUTO) 0.4 (0.2-0.8); MONOCYTES % 6.7 % (4.4-11.3); NEUTROPHILS # (AUTO) 2.7 (2.1-6.9); NEUTROPHILS % 51.3 % (38.7-80.0); PLATELET COUNT 262 x10e3/uL (140-360); RED BLOOD COUNT 2.95 x10e6/uL (4.3-5.7); RED CELL DISTRIBUTION WIDTH 14.8 % (11.7-14.4)
[2023-01-12] MEDS: TIZANIDINE HCL 4 MG TAB PO SCH ×3 (05:48→21:09)
[2023-01-12] MEDS: INSULIN REGULAR, HUMAN 100 UNIT/1 ML SQ SCH ×4 (06:00→17:19)
[2023-01-12 06:03] LABS: ALBUMIN 2.2 g/dL (3.5-5.0); ALBUMIN/GLOBULIN RATIO 0.4 (0.8-2.0); ANION GAP 8.8 mmol/L (8-16); CALCIUM 8.7 mg/dL (8.4-10.2); CREATININE, SERUM 0.62 mg/dL (0.72-1.25); POTASSIUM 3.8 mmol/L (3.5-5.1)
[2023-01-12] MEDS: DOCUSATE SODIUM LIQD 100 MG/10 ML UDC PO SCH ×2 (09:00→21:00)
[2023-01-12] MEDS: LACTULOSE SYRUP 20 GM/30 ML UDC PEG SCH (09:51)
[2023-01-12] MEDS: FAMOTIDINE 20 MG TAB PO SCH ×2 (09:51→16:24)
[2023-01-12] MEDS: GABAPENTIN 300 MG CAP PEG SCH ×2 (09:53→16:23)
[2023-01-12] MEDS: CARBIDOPA/LEVODOPA 25/100 TAB PEG SCH ×2 (09:53→16:23)
[2023-01-12] MEDS: AMIODARONE HCL 200 MG TAB PO SCH ×2 (09:54→16:23)
[2023-01-12] MEDS ORDERED: Vancomycin IV 1 GM in SODIUM CHLORIDE 0.9% 250ML 250 ML IV SCH (11:15)
[2023-01-12] MEDS: IPRATROPIUM BROMIDE 0.02% 2.5 ML NEB NEB SCH ×2 (13:11→19:40)
[2023-01-12] MEDS: ENOXAPARIN 30 MG/0.3 ML SYR SC SCH (16:24)
[2023-01-12] MEDS: SERTRALINE HCL 50 MG TAB PEG SCH (21:00)
[2023-01-12] MEDS: Vancomycin IV 1 GM in SODIUM CHLORIDE 0.9% 250ML 250 ML IV SCH (21:10)
[2023-01-13] VITALS (21 sets, daily range): BP systolic 95–131; BP diastolic 65–83
[2023-01-13] MEDS: IPRATROPIUM BROMIDE 0.02% 2.5 ML NEB NEB SCH ×3 (01:55→19:30)
[2023-01-13 04:27] LABS: % IRON SATURATION 23 % (15-50); IRON 59 ug/dL (65-175); TOTAL IRON BINDING CAPACITY 253 ug/dL (261-478); TRANSFERRIN 181 mg/dL (174-364)
[2023-01-13] MEDS ORDERED: DIATRIZOATE MEGL/DIATRIZOA SOD 30 ML BTL PO ONE (05:45)
[2023-01-13] MEDS: INSULIN REGULAR, HUMAN 100 UNIT/1 ML SQ SCH ×4 (06:00→18:00)
[2023-01-13] MEDS: TIZANIDINE HCL 4 MG TAB PO SCH ×3 (06:00→22:12)
[2023-01-13 06:20] LABS: BASOPHILS % 0.5 % (0.0-1.0); EOSINOPHILS # (AUTO) 0.2 (0.0-0.4); EOSINOPHILS % 3.1 % (0.0-6.0); HEMATOCRIT 30.1 % (38.2-49.6); HEMOGLOBIN 8.6 g/dL (14.0-18.0); LYMPHOCYTES # (AUTO) 2.3 (1.0-3.2); LYMPHOCYTES % 39.6 % (18.0-39.1); MEAN CORPUSCULAR HEMOGLOBIN 28.4 pg (28-32); MEAN CORPUSCULAR HGB CONC 28.6 g/dL (31-35); MEAN CORPUSCULAR VOLUME 99.3 fL (81-99); MONOCYTES # (AUTO) 0.4 (0.2-0.8); MONOCYTES % 6.2 % (4.4-11.3); NEUTROPHILS # (AUTO) 2.9 (2.1-6.9); NEUTROPHILS % 50.3 % (38.7-80.0); PLATELET COUNT 253 x10e3/uL (140-360); RED BLOOD COUNT 3.03 x10e6/uL (4.3-5.7); RED CELL DISTRIBUTION WIDTH 14.8 % (11.7-14.4)
[2023-01-13 07:00] LABS: ALBUMIN 2.3 g/dL (3.5-5.0); ALBUMIN/GLOBULIN RATIO 0.4 (0.8-2.0); ANION GAP 9.6 mmol/L (8-16); CALCIUM 8.7 mg/dL (8.4-10.2); CREATININE, SERUM 0.61 mg/dL (0.72-1.25); POTASSIUM 3.6 mmol/L (3.5-5.1)
[2023-01-13 08:29] LABS: PLATELET ESTIMATE ADEQUATE; PLATELET MORPHOLOGY COMMENT NORMAL; RBC MORPHOLOGY COMMENT NORMAL
[2023-01-13] MEDS: GABAPENTIN 300 MG CAP PEG SCH ×2 (09:00→17:03)
[2023-01-13] MEDS: AMIODARONE HCL 200 MG TAB PO SCH ×2 (09:00→17:03)
[2023-01-13] MEDS: FAMOTIDINE 20 MG TAB PO SCH ×2 (09:00→17:03)
[2023-01-13] MEDS: SENNOSIDES 8.6 MG TAB PO SCH (09:00)
[2023-01-13] MEDS: CARBIDOPA/LEVODOPA 25/100 TAB PEG SCH ×2 (09:00→17:03)
[2023-01-13] MEDS: LACTULOSE SYRUP 20 GM/30 ML UDC PEG SCH (09:00)
[2023-01-13] MEDS: FLUCONAZOLE 100 MG TAB PO SCH (09:00)
[2023-01-13] MEDS: DOCUSATE SODIUM LIQD 100 MG/10 ML UDC PO SCH ×2 (09:00→21:03)
[2023-01-13] MEDS: Vancomycin IV 1 GM in SODIUM CHLORIDE 0.9% 250ML 250 ML IV SCH ×2 (09:06→21:02)
[2023-01-13] MEDS: POTASSIUM CHLORIDE 20MEQ/100ML 100 ML IV SCH ×2 (09:07→11:03)
[2023-01-13] MEDS: ENOXAPARIN 30 MG/0.3 ML SYR SC SCH (17:03)
[2023-01-13] MEDS: SERTRALINE HCL 50 MG TAB PEG SCH (21:03)
[2023-01-14] VITALS (18 sets, daily range): BP systolic 101–128; BP diastolic 68–87
[2023-01-14] MEDS: IPRATROPIUM BROMIDE 0.02% 2.5 ML NEB NEB SCH ×4 (00:25→18:43)
[2023-01-14] MEDS: TIZANIDINE HCL 4 MG TAB PO SCH ×3 (05:44→21:32)
[2023-01-14] MEDS: INSULIN REGULAR, HUMAN 100 UNIT/1 ML SQ SCH ×4 (06:00→17:57)
[2023-01-14 07:08] LABS: BASOPHILS % 0.2 % (0.0-1.0); EOSINOPHILS # (AUTO) 0.2 (0.0-0.4); HEMATOCRIT 28.6 % (38.2-49.6); LYMPHOCYTES # (AUTO) 2.2 (1.0-3.2); LYMPHOCYTES % 23.8 % (18.0-39.1); MEAN CORPUSCULAR HEMOGLOBIN 29.4 pg (28-32); MEAN CORPUSCULAR HGB CONC 31.5 g/dL (31-35); MEAN CORPUSCULAR VOLUME 93.5 fL (81-99); MONOCYTES # (AUTO) 0.4 (0.2-0.8); MONOCYTES % 4.3 % (4.4-11.3); NEUTROPHILS # (AUTO) 6.4 (2.1-6.9); NEUTROPHILS % 69.3 % (38.7-80.0); PLATELET COUNT 278 x10e3/uL (140-360); RED BLOOD COUNT 3.06 x10e6/uL (4.3-5.7); RED CELL DISTRIBUTION WIDTH 15.3 % (11.7-14.4)
[2023-01-14 07:31] LABS: ALBUMIN 2.5 g/dL (3.5-5.0); ALBUMIN/GLOBULIN RATIO 0.4 (0.8-2.0); CALCIUM 8.9 mg/dL (8.4-10.2); CREATININE, SERUM 0.62 mg/dL (0.72-1.25)
[2023-01-14] MEDS: CARBIDOPA/LEVODOPA 25/100 TAB PEG SCH ×2 (08:23→16:33)
[2023-01-14] MEDS: AMIODARONE HCL 200 MG TAB PO SCH ×2 (08:23→16:33)
[2023-01-14] MEDS: IRON-VITAMIN-MINERAL CAPSULE GT SCH ×2 (08:23→16:33)
[2023-01-14] MEDS: FAMOTIDINE 20 MG TAB PO SCH ×2 (08:23→16:33)
[2023-01-14] MEDS: Vancomycin IV 1 GM in SODIUM CHLORIDE 0.9% 250ML 250 ML IV SCH (08:24)
[2023-01-14] MEDS: SENNOSIDES 8.6 MG TAB PO SCH (08:24)
[2023-01-14] MEDS: LACTULOSE SYRUP 20 GM/30 ML UDC PEG SCH (08:24)
[2023-01-14] MEDS: GABAPENTIN 300 MG CAP PEG SCH ×2 (08:24→16:33)
[2023-01-14] MEDS: DOCUSATE SODIUM LIQD 100 MG/10 ML UDC PO SCH ×2 (08:24→21:19)
[2023-01-14] MEDS: FLUCONAZOLE 100 MG TAB PO SCH (08:25)
[2023-01-14] MEDS: ENOXAPARIN 30 MG/0.3 ML SYR SC SCH (16:33)
[2023-01-14] MEDS ORDERED: FLUCONAZOLE 100 MG TAB PO ONE (20:45)
[2023-01-14] MEDS: SERTRALINE HCL 50 MG TAB PEG SCH (21:19)
[2023-01-15] VITALS (20 sets, daily range): BP systolic 89–121; BP diastolic 64–84
[2023-01-15] MEDS: IPRATROPIUM BROMIDE 0.02% 2.5 ML NEB NEB SCH ×4 (01:30→18:50)
[2023-01-15] MEDS: TIZANIDINE HCL 4 MG TAB PO SCH ×3 (05:28→22:23)
[2023-01-15] MEDS: INSULIN REGULAR, HUMAN 100 UNIT/1 ML SQ SCH ×4 (05:48→17:36)
[2023-01-15 06:23] LABS: BASOPHILS % 0.3 % (0.0-1.0); EOSINOPHILS # (AUTO) 0.3 (0.0-0.4); EOSINOPHILS % 4.4 % (0.0-6.0); HEMATOCRIT 29.9 % (38.2-49.6); HEMOGLOBIN 9.3 g/dL (14.0-18.0); LYMPHOCYTES # (AUTO) 2.4 (1.0-3.2); LYMPHOCYTES % 39.9 % (18.0-39.1); MEAN CORPUSCULAR HEMOGLOBIN 29.2 pg (28-32); MEAN CORPUSCULAR HGB CONC 31.1 g/dL (31-35); MEAN CORPUSCULAR VOLUME 93.7 fL (81-99); MONOCYTES # (AUTO) 0.3 (0.2-0.8); MONOCYTES % 5.2 % (4.4-11.3); NEUTROPHILS # (AUTO) 2.9 (2.1-6.9); NEUTROPHILS % 49.9 % (38.7-80.0); PLATELET COUNT 259 x10e3/uL (140-360); RED BLOOD COUNT 3.19 x10e6/uL (4.3-5.7); RED CELL DISTRIBUTION WIDTH 15.1 % (11.7-14.4)
[2023-01-15 06:44] LABS: ALBUMIN 2.6 g/dL (3.5-5.0); ALBUMIN/GLOBULIN RATIO 0.4 (0.8-2.0); ANION GAP 12.3 mmol/L (8-16); CALCIUM 9.4 mg/dL (8.4-10.2); CREATININE, SERUM 0.63 mg/dL (0.72-1.25); POTASSIUM 4.3 mmol/L (3.5-5.1)
[2023-01-15] MEDS: DOCUSATE SODIUM LIQD 100 MG/10 ML UDC PO SCH ×2 (08:08→22:20)
[2023-01-15] MEDS: LACTULOSE SYRUP 20 GM/30 ML UDC PEG SCH (08:08)
[2023-01-15] MEDS: IRON-VITAMIN-MINERAL CAPSULE GT SCH ×2 (08:09→17:11)
[2023-01-15] MEDS: GABAPENTIN 300 MG CAP PEG SCH ×2 (08:09→17:12)
[2023-01-15] MEDS: CARBIDOPA/LEVODOPA 25/100 TAB PEG SCH ×2 (08:09→17:12)
[2023-01-15] MEDS: SENNOSIDES 8.6 MG TAB PO SCH (08:10)
[2023-01-15] MEDS: FAMOTIDINE 20 MG TAB PO SCH ×2 (08:10→17:12)
[2023-01-15] MEDS: AMIODARONE HCL 200 MG TAB PO SCH ×2 (08:10→17:12)
[2023-01-15] MEDS: ENOXAPARIN 30 MG/0.3 ML SYR SC SCH (17:12)
[2023-01-15] MEDS ORDERED: FLUCONAZOLE 100 MG TAB PO ONE (21:00)
[2023-01-15] MEDS: SERTRALINE HCL 50 MG TAB PEG SCH (22:20)
[2023-01-16] VITALS (7 sets, daily range): BP systolic 99–119; BP diastolic 66–85
[2023-01-16] MEDS: IPRATROPIUM BROMIDE 0.02% 2.5 ML NEB NEB SCH ×4 (00:55→20:05)
[2023-01-16] MEDS: INSULIN REGULAR, HUMAN 100 UNIT/1 ML SQ SCH ×4 (05:43→17:12)
[2023-01-16] MEDS: TIZANIDINE HCL 4 MG TAB PO SCH ×3 (05:43→21:59)
[2023-01-16 06:05] LABS: BASOPHILS % 0.5 % (0.0-1.0); EOSINOPHILS # (AUTO) 0.3 (0.0-0.4); HEMATOCRIT 30.4 % (38.2-49.6); HEMOGLOBIN 9.8 g/dL (14.0-18.0); LYMPHOCYTES # (AUTO) 2.9 (1.0-3.2); LYMPHOCYTES % 35.5 % (18.0-39.1); MEAN CORPUSCULAR HEMOGLOBIN 30.3 pg (28-32); MEAN CORPUSCULAR HGB CONC 32.2 g/dL (31-35); MEAN CORPUSCULAR VOLUME 94.1 fL (81-99); MONOCYTES # (AUTO) 0.5 (0.2-0.8); MONOCYTES % 5.5 % (4.4-11.3); NEUTROPHILS # (AUTO) 4.6 (2.1-6.9); NEUTROPHILS % 55.3 % (38.7-80.0); PLATELET COUNT 255 x10e3/uL (140-360); RED BLOOD COUNT 3.23 x10e6/uL (4.3-5.7); RED CELL DISTRIBUTION WIDTH 15.4 % (11.7-14.4)
[2023-01-16 06:21] LABS: ALBUMIN 2.7 g/dL (3.5-5.0); ALBUMIN/GLOBULIN RATIO 0.4 (0.8-2.0); ANION GAP 12.4 mmol/L (8-16); CALCIUM 9.9 mg/dL (8.4-10.2); CREATININE, SERUM 0.72 mg/dL (0.72-1.25); POTASSIUM 4.4 mmol/L (3.5-5.1)
[2023-01-16] MEDS ORDERED: AMIODARONE HCL200 MG PO (08:45)
[2023-01-16] MEDS ORDERED: FLUCONAZOLE100 MG GT (08:45)
[2023-01-16] MEDS ORDERED: Guaifenesin/Dextromethorphan PO (08:45)
[2023-01-16] MEDS: GABAPENTIN 300 MG CAP PEG SCH ×2 (09:00→17:11)
[2023-01-16] MEDS: DOCUSATE SODIUM LIQD 100 MG/10 ML UDC PO SCH ×2 (09:00→21:59)
[2023-01-16] MEDS: IRON-VITAMIN-MINERAL CAPSULE GT SCH ×2 (09:00→17:11)
[2023-01-16] MEDS: LACTULOSE SYRUP 20 GM/30 ML UDC PEG SCH (09:00)
[2023-01-16] MEDS: SENNOSIDES 8.6 MG TAB PO SCH (09:00)
[2023-01-16] MEDS: AMIODARONE HCL 200 MG TAB PO SCH ×2 (09:00→17:11)
[2023-01-16] MEDS: CARBIDOPA/LEVODOPA 25/100 TAB PEG SCH ×2 (09:00→17:11)
[2023-01-16] MEDS: FAMOTIDINE 20 MG TAB PO SCH ×2 (09:00→17:11)
[2023-01-16] MEDS: ENOXAPARIN 30 MG/0.3 ML SYR SC SCH (17:11)
[2023-01-16] MEDS ORDERED: SODIUM CHLORIDE 0.9% 250ML 250 ML ONE (17:18)
[2023-01-16] MEDS: SERTRALINE HCL 50 MG TAB PEG SCH (21:58)
[2023-01-17] VITALS (8 sets, daily range): BP systolic 87–121; BP diastolic 61–85
[2023-01-17] MEDS: IPRATROPIUM BROMIDE 0.02% 2.5 ML NEB NEB SCH ×4 (00:05→19:18)
[2023-01-17] MEDS: TIZANIDINE HCL 4 MG TAB PO SCH ×3 (05:46→21:02)
[2023-01-17] MEDS: INSULIN REGULAR, HUMAN 100 UNIT/1 ML SQ SCH ×4 (06:00→16:38)
[2023-01-17 06:22] LABS: BASOPHILS % 0.4 % (0.0-1.0); EOSINOPHILS # (AUTO) 0.2 (0.0-0.4); EOSINOPHILS % 2.5 % (0.0-6.0); HEMATOCRIT 30.4 % (38.2-49.6); HEMOGLOBIN 9.9 g/dL (14.0-18.0); LYMPHOCYTES # (AUTO) 3.1 (1.0-3.2); LYMPHOCYTES % 32.5 % (18.0-39.1); MEAN CORPUSCULAR HEMOGLOBIN 29.3 pg (28-32); MEAN CORPUSCULAR HGB CONC 32.6 g/dL (31-35); MEAN CORPUSCULAR VOLUME 89.9 fL (81-99); MONOCYTES # (AUTO) 0.6 (0.2-0.8); MONOCYTES % 6.1 % (4.4-11.3); NEUTROPHILS # (AUTO) 5.5 (2.1-6.9); NEUTROPHILS % 58.2 % (38.7-80.0); PLATELET COUNT 311 x10e3/uL (140-360); RED BLOOD COUNT 3.38 x10e6/uL (4.3-5.7); RED CELL DISTRIBUTION WIDTH 15.2 % (11.7-14.4)
[2023-01-17 06:46] LABS: ANION GAP 11.4 mmol/L (8-16); CALCIUM 9.6 mg/dL (8.4-10.2); CREATININE, SERUM 0.75 mg/dL (0.72-1.25); POTASSIUM 4.4 mmol/L (3.5-5.1)
[2023-01-17] MEDS ORDERED: FLUCONAZOLE 100 MG TAB PO SCH (07:00)
[2023-01-17] MEDS: DOCUSATE SODIUM LIQD 100 MG/10 ML UDC PO SCH ×2 (09:40→20:58)
[2023-01-17] MEDS: IRON-VITAMIN-MINERAL CAPSULE GT SCH ×2 (09:40→16:37)
[2023-01-17] MEDS: AMIODARONE HCL 200 MG TAB PO SCH ×2 (09:40→16:37)
[2023-01-17] MEDS: CARBIDOPA/LEVODOPA 25/100 TAB PEG SCH ×2 (09:40→16:37)
[2023-01-17] MEDS: FAMOTIDINE 20 MG TAB PO SCH ×2 (09:40→16:37)
[2023-01-17] MEDS: LACTULOSE SYRUP 20 GM/30 ML UDC PEG SCH (09:40)
[2023-01-17] MEDS: SENNOSIDES 8.6 MG TAB PO SCH (09:40)
[2023-01-17] MEDS: GABAPENTIN 300 MG CAP PEG SCH ×2 (09:40→16:37)
[2023-01-17] MEDS: MEROPENEM 1 GM in SODIUM CHLORIDE 0.9% 100 ML IV SCH ×2 (13:05→20:58)
[2023-01-17] MEDS: ENOXAPARIN 30 MG/0.3 ML SYR SC SCH (16:37)
[2023-01-17] MEDS: SERTRALINE HCL 50 MG TAB PEG SCH (20:58)
[2023-01-18] VITALS (7 sets, daily range): BP systolic 97–153; BP diastolic 61–95
[2023-01-18] MEDS: IPRATROPIUM BROMIDE 0.02% 2.5 ML NEB NEB SCH ×4 (00:45→19:00)
[2023-01-18] MEDS: INSULIN REGULAR, HUMAN 100 UNIT/1 ML SQ SCH ×4 (05:31→18:00)
[2023-01-18] MEDS: TIZANIDINE HCL 4 MG TAB PO SCH ×3 (05:34→22:48)
[2023-01-18] MEDS: MEROPENEM 1 GM in SODIUM CHLORIDE 0.9% 100 ML IV SCH ×3 (05:34→22:49)
[2023-01-18 05:48] LABS: BASOPHILS # (AUTO) 0.1 (0.0-0.1); BASOPHILS % 0.5 % (0.0-1.0); EOSINOPHILS # (AUTO) 0.2 (0.0-0.4); EOSINOPHILS % 1.9 % (0.0-6.0); HEMATOCRIT 30.6 % (38.2-49.6); HEMOGLOBIN 9.6 g/dL (14.0-18.0); LYMPHOCYTES # (AUTO) 3.2 (1.0-3.2); LYMPHOCYTES % 26.7 % (18.0-39.1); MEAN CORPUSCULAR HEMOGLOBIN 29.3 pg (28-32); MEAN CORPUSCULAR HGB CONC 31.4 g/dL (31-35); MEAN CORPUSCULAR VOLUME 93.3 fL (81-99); MONOCYTES # (AUTO) 0.6 (0.2-0.8); MONOCYTES % 4.9 % (4.4-11.3); NEUTROPHILS # (AUTO) 7.8 (2.1-6.9); NEUTROPHILS % 65.5 % (38.7-80.0); PLATELET COUNT 309 x10e3/uL (140-360); RED BLOOD COUNT 3.28 x10e6/uL (4.3-5.7); RED CELL DISTRIBUTION WIDTH 15.2 % (11.7-14.4)
[2023-01-18 06:02] LABS: ALBUMIN 2.8 g/dL (3.5-5.0); ALBUMIN/GLOBULIN RATIO 0.4 (0.8-2.0); ANION GAP 9.1 mmol/L (8-16); CALCIUM 9.4 mg/dL (8.4-10.2); CREATININE, SERUM 0.76 mg/dL (0.72-1.25); POTASSIUM 4.1 mmol/L (3.5-5.1)
[2023-01-18] MEDS: CARBIDOPA/LEVODOPA 25/100 TAB PEG SCH ×2 (10:21→17:30)
[2023-01-18] MEDS: FAMOTIDINE 20 MG TAB PO SCH ×2 (10:21→17:30)
[2023-01-18] MEDS: GABAPENTIN 300 MG CAP PEG SCH ×2 (10:21→17:30)
[2023-01-18] MEDS: SENNOSIDES 8.6 MG TAB PO SCH (10:21)
[2023-01-18] MEDS: AMIODARONE HCL 200 MG TAB PO SCH ×2 (10:21→17:30)
[2023-01-18] MEDS: LACTULOSE SYRUP 20 GM/30 ML UDC PEG SCH (10:21)
[2023-01-18] MEDS: IRON-VITAMIN-MINERAL CAPSULE GT SCH ×2 (10:21→17:30)
[2023-01-18] MEDS: DOCUSATE SODIUM LIQD 100 MG/10 ML UDC PO SCH ×2 (10:21→20:42)
[2023-01-18] MEDS: SERTRALINE HCL 50 MG TAB PEG SCH (20:42)
[2023-01-19] VITALS (8 sets, daily range): BP systolic 93–124; BP diastolic 59–93
[2023-01-19] MEDS: IPRATROPIUM BROMIDE 0.02% 2.5 ML NEB NEB SCH ×5 (01:20→19:15)
[2023-01-19] MEDS: MEROPENEM 1 GM in SODIUM CHLORIDE 0.9% 100 ML IV SCH ×3 (05:58→21:02)
[2023-01-19] MEDS: TIZANIDINE HCL 4 MG TAB PO SCH ×3 (05:59→21:03)
[2023-01-19] MEDS: INSULIN REGULAR, HUMAN 100 UNIT/1 ML SQ SCH ×4 (06:00→18:00)
[2023-01-19 08:38] LABS: BASOPHILS % 0.6 % (0.0-1.0); EOSINOPHILS % 0.8 % (0.0-6.0); HEMATOCRIT 31.2 % (38.2-49.6); HEMOGLOBIN 9.5 g/dL (14.0-18.0); LYMPHOCYTES # (AUTO) 0.5 (1.0-3.2); LYMPHOCYTES % 10.3 % (18.0-39.1); MEAN CORPUSCULAR HEMOGLOBIN 26.5 pg (28-32); MEAN CORPUSCULAR HGB CONC 30.4 g/dL (31-35); MEAN CORPUSCULAR VOLUME 86.9 fL (81-99); MONOCYTES # (AUTO) 0.4 (0.2-0.8); MONOCYTES % 7.9 % (4.4-11.3); NEUTROPHILS # (AUTO) 3.9 (2.1-6.9); NEUTROPHILS % 80.2 % (38.7-80.0); PLATELET COUNT 160 x10e3/uL (140-360); RED BLOOD COUNT 3.59 x10e6/uL (4.3-5.7); RED CELL DISTRIBUTION WIDTH 15.4 % (11.7-14.4)
[2023-01-19] MEDS: SENNOSIDES 8.6 MG TAB PO SCH (09:50)
[2023-01-19] MEDS: LACTULOSE SYRUP 20 GM/30 ML UDC PEG SCH (09:50)
[2023-01-19] MEDS: DOCUSATE SODIUM LIQD 100 MG/10 ML UDC PO SCH ×2 (09:50→21:03)
[2023-01-19] MEDS: CARBIDOPA/LEVODOPA 25/100 TAB PEG SCH ×2 (09:50→18:47)
[2023-01-19] MEDS: IRON-VITAMIN-MINERAL CAPSULE GT SCH ×2 (09:50→18:48)
[2023-01-19] MEDS: GABAPENTIN 300 MG CAP PEG SCH ×2 (09:50→18:47)
[2023-01-19] MEDS: AMIODARONE HCL 200 MG TAB PO SCH ×2 (09:51→18:49)
[2023-01-19] MEDS: FAMOTIDINE 20 MG TAB PO SCH ×2 (09:51→18:47)
[2023-01-19 15:39] LABS: BASOPHILS % 0.4 % (0.0-1.0); EOSINOPHILS # (AUTO) 0.4 (0.0-0.4); EOSINOPHILS % 5.9 % (0.0-6.0); HEMATOCRIT 29.6 % (38.2-49.6); LYMPHOCYTES # (AUTO) 3.2 (1.0-3.2); LYMPHOCYTES % 45.6 % (18.0-39.1); MEAN CORPUSCULAR HEMOGLOBIN 28.4 pg (28-32); MEAN CORPUSCULAR HGB CONC 30.4 g/dL (31-35); MEAN CORPUSCULAR VOLUME 93.4 fL (81-99); MONOCYTES # (AUTO) 0.5 (0.2-0.8); MONOCYTES % 7.3 % (4.4-11.3); NEUTROPHILS # (AUTO) 2.8 (2.1-6.9); NEUTROPHILS % 40.4 % (38.7-80.0); PLATELET COUNT 302 x10e3/uL (140-360); RED BLOOD COUNT 3.17 x10e6/uL (4.3-5.7); RED CELL DISTRIBUTION WIDTH 15.1 % (11.7-14.4)
[2023-01-19 15:53] LABS: ALBUMIN 2.7 g/dL (3.5-5.0); ALBUMIN/GLOBULIN RATIO 0.4 (0.8-2.0); ANION GAP 11.3 mmol/L (8-16); CALCIUM 9.4 mg/dL (8.4-10.2); CREATININE, SERUM 0.71 mg/dL (0.72-1.25); POTASSIUM 4.3 mmol/L (3.5-5.1)
[2023-01-19] MEDS: LACTATED RINGER'S 1,000 ML INJ SCH (16:44)
[2023-01-19] MEDS: SERTRALINE HCL 50 MG TAB PEG SCH (21:02)
[2023-01-20] VITALS (8 sets, daily range): BP systolic 92–126; BP diastolic 8–80
[2023-01-20] MEDS: IPRATROPIUM BROMIDE 0.02% 2.5 ML NEB NEB SCH ×3 (01:25→18:55)
[2023-01-20] MEDS: LACTATED RINGER'S 1,000 ML INJ SCH ×3 (03:02→20:31)
[2023-01-20] MEDS: INSULIN REGULAR, HUMAN 100 UNIT/1 ML SQ SCH ×4 (06:00→18:00)
[2023-01-20] MEDS: TIZANIDINE HCL 4 MG TAB PO SCH ×3 (06:19→22:02)
[2023-01-20] MEDS: MEROPENEM 1 GM in SODIUM CHLORIDE 0.9% 100 ML IV SCH ×3 (06:20→22:02)
[2023-01-20 06:51] LABS: BASOPHILS # (AUTO) 0.1 (0.0-0.1); BASOPHILS % 0.8 % (0.0-1.0); EOSINOPHILS # (AUTO) 0.4 (0.0-0.4); EOSINOPHILS % 6.5 % (0.0-6.0); HEMATOCRIT 26.2 % (38.2-49.6); HEMOGLOBIN 8.4 g/dL (14.0-18.0); LYMPHOCYTES # (AUTO) 2.9 (1.0-3.2); LYMPHOCYTES % 44.8 % (18.0-39.1); MEAN CORPUSCULAR HEMOGLOBIN 30.8 pg (28-32); MEAN CORPUSCULAR HGB CONC 32.1 g/dL (31-35); MONOCYTES # (AUTO) 0.5 (0.2-0.8); MONOCYTES % 7.4 % (4.4-11.3); NEUTROPHILS # (AUTO) 2.6 (2.1-6.9); NEUTROPHILS % 40.2 % (38.7-80.0); PLATELET COUNT 234 x10e3/uL (140-360); RED BLOOD COUNT 2.73 x10e6/uL (4.3-5.7); RED CELL DISTRIBUTION WIDTH 15.3 % (11.7-14.4)
[2023-01-20 07:13] LABS: ALBUMIN 2.4 g/dL (3.5-5.0); ALBUMIN/GLOBULIN RATIO 0.4 (0.8-2.0); ANION GAP 9.3 mmol/L (8-16); CALCIUM 9.2 mg/dL (8.4-10.2); CREATININE, SERUM 0.64 mg/dL (0.72-1.25); POTASSIUM 4.3 mmol/L (3.5-5.1)
[2023-01-20] MEDS: CARBIDOPA/LEVODOPA 25/100 TAB PEG SCH ×2 (09:00→16:43)
[2023-01-20] MEDS: LACTULOSE SYRUP 20 GM/30 ML UDC PEG SCH (09:00)
[2023-01-20] MEDS: DOCUSATE SODIUM LIQD 100 MG/10 ML UDC PO SCH ×2 (09:00→20:57)
[2023-01-20] MEDS: FAMOTIDINE 20 MG TAB PO SCH ×2 (09:01→16:44)
[2023-01-20] MEDS: IRON-VITAMIN-MINERAL CAPSULE GT SCH ×2 (09:01→16:44)
[2023-01-20] MEDS: SENNOSIDES 8.6 MG TAB PO SCH (09:01)
[2023-01-20] MEDS: GABAPENTIN 300 MG CAP PEG SCH ×2 (09:01→16:44)
[2023-01-20] MEDS: AMIODARONE HCL 200 MG TAB PO SCH ×2 (09:01→16:44)
[2023-01-20] MEDS: SERTRALINE HCL 50 MG TAB PEG SCH (20:57)
[2023-01-21] VITALS (8 sets, daily range): BP systolic 108–146; BP diastolic 71–97
[2023-01-21] MEDS: IPRATROPIUM BROMIDE 0.02% 2.5 ML NEB NEB SCH ×4 (01:10→19:45)
[2023-01-21] MEDS: LACTATED RINGER'S 1,000 ML INJ SCH (05:15)
[2023-01-21] MEDS: INSULIN REGULAR, HUMAN 100 UNIT/1 ML SQ SCH ×4 (05:48→18:00)
[2023-01-21] MEDS: TIZANIDINE HCL 4 MG TAB PO SCH ×3 (05:50→23:29)
[2023-01-21] MEDS: MEROPENEM 1 GM in SODIUM CHLORIDE 0.9% 100 ML IV SCH ×3 (05:50→22:40)
[2023-01-21 06:05] LABS: BASOPHILS % 0.7 % (0.0-1.0); EOSINOPHILS # (AUTO) 0.4 (0.0-0.4); EOSINOPHILS % 6.5 % (0.0-6.0); HEMATOCRIT 26.9 % (38.2-49.6); HEMOGLOBIN 8.2 g/dL (14.0-18.0); LYMPHOCYTES # (AUTO) 2.7 (1.0-3.2); LYMPHOCYTES % 44.8 % (18.0-39.1); MEAN CORPUSCULAR HEMOGLOBIN 28.6 pg (28-32); MEAN CORPUSCULAR HGB CONC 30.5 g/dL (31-35); MEAN CORPUSCULAR VOLUME 93.7 fL (81-99); MONOCYTES # (AUTO) 0.4 (0.2-0.8); NEUTROPHILS # (AUTO) 2.5 (2.1-6.9); NEUTROPHILS % 40.8 % (38.7-80.0); PLATELET COUNT 278 x10e3/uL (140-360); RED BLOOD COUNT 2.87 x10e6/uL (4.3-5.7); RED CELL DISTRIBUTION WIDTH 14.7 % (11.7-14.4)
[2023-01-21 06:36] LABS: ALBUMIN 2.3 g/dL (3.5-5.0); ALBUMIN/GLOBULIN RATIO 0.4 (0.8-2.0); ANION GAP 9.2 mmol/L (8-16); CALCIUM 9.1 mg/dL (8.4-10.2); CREATININE, SERUM 0.6 mg/dL (0.72-1.25); POTASSIUM 4.2 mmol/L (3.5-5.1)
[2023-01-21] MEDS: FAMOTIDINE 20 MG TAB PO SCH ×2 (09:00→16:00)
[2023-01-21] MEDS: LACTULOSE SYRUP 20 GM/30 ML UDC PEG SCH (09:00)
[2023-01-21] MEDS: SENNOSIDES 8.6 MG TAB PO SCH (09:00)
[2023-01-21] MEDS: IRON-VITAMIN-MINERAL CAPSULE GT SCH ×2 (09:00→15:49)
[2023-01-21] MEDS: CARBIDOPA/LEVODOPA 25/100 TAB PEG SCH ×2 (09:00→15:49)
[2023-01-21] MEDS: DOCUSATE SODIUM LIQD 100 MG/10 ML UDC PO SCH ×2 (09:00→22:40)
[2023-01-21] MEDS: AMIODARONE HCL 200 MG TAB PO SCH ×2 (09:00→15:50)
[2023-01-21] MEDS: SERTRALINE HCL 50 MG TAB PEG SCH (22:40)
[2023-01-22] VITALS: BP 125/81
[2023-01-22] MEDS: IPRATROPIUM BROMIDE 0.02% 2.5 ML NEB NEB SCH ×3 (02:15→12:25)
[2023-01-22 04:00] VITALS: BP 129/96
[2023-01-22 05:43] LABS: BASOPHILS # (AUTO) 0.1 (0.0-0.1); BASOPHILS % 0.8 % (0.0-1.0); EOSINOPHILS # (AUTO) 0.4 (0.0-0.4); EOSINOPHILS % 5.1 % (0.0-6.0); HEMATOCRIT 30.9 % (38.2-49.6); HEMOGLOBIN 9.7 g/dL (14.0-18.0); LYMPHOCYTES # (AUTO) 3.1 (1.0-3.2); MEAN CORPUSCULAR HEMOGLOBIN 29.2 pg (28-32); MEAN CORPUSCULAR HGB CONC 31.4 g/dL (31-35); MEAN CORPUSCULAR VOLUME 93.1 fL (81-99); MONOCYTES # (AUTO) 0.5 (0.2-0.8); MONOCYTES % 6.1 % (4.4-11.3); NEUTROPHILS # (AUTO) 3.7 (2.1-6.9); NEUTROPHILS % 47.6 % (38.7-80.0); PLATELET COUNT 368 x10e3/uL (140-360); RED BLOOD COUNT 3.32 x10e6/uL (4.3-5.7); RED CELL DISTRIBUTION WIDTH 14.6 % (11.7-14.4)
[2023-01-22] MEDS: INSULIN REGULAR, HUMAN 100 UNIT/1 ML SQ SCH ×3 (06:00→12:00)
[2023-01-22 06:07] LABS: ANION GAP 11.2 mmol/L (8-16); CALCIUM 9.5 mg/dL (8.4-10.2); CREATININE, SERUM 0.68 mg/dL (0.72-1.25); POTASSIUM 4.2 mmol/L (3.5-5.1)
[2023-01-22] MEDS: TIZANIDINE HCL 4 MG TAB PO SCH ×2 (06:19→14:13)
[2023-01-22] MEDS ORDERED: TOBRAMYCIN 40MG/ML 30ML MDV INH SCH (08:30)
[2023-01-22] MEDS: SENNOSIDES 8.6 MG TAB PO SCH (10:56)
[2023-01-22] MEDS: DOCUSATE SODIUM LIQD 100 MG/10 ML UDC PO SCH (10:56)
[2023-01-22] MEDS: CARBIDOPA/LEVODOPA 25/100 TAB PEG SCH (10:56)
[2023-01-22] MEDS: FAMOTIDINE 20 MG TAB PO SCH (10:56)
[2023-01-22] MEDS: IRON-VITAMIN-MINERAL CAPSULE GT SCH (10:56)
[2023-01-22] MEDS: LACTULOSE SYRUP 20 GM/30 ML UDC PEG SCH (10:57)
[2023-01-22] MEDS ORDERED: ACETAMINOPHEN 325 MG/10 ML UDC PEG PRN (13:30)
== END 2023-01-22 17:34 | DRG 871 ==
LOC: ER 21:40 → ERHOLD 01-11 00:08 → ICU 01-11 00:45 → MED/SURG2 01-15 23:35
PROVIDERS: ADMIT Internal Medicine; ATTEND Internal Medicine
PROC: 02HV33Z Insertion of Infusion Device into Superior Vena Cava, Percutaneous Approach (ICD-10-PCS; principal; 2023-01-11)
DX: A41.52 Sepsis due to Pseudomonas (principal); E43 Unspecified severe protein-calorie malnutrition; J15.6 Pneumonia due to other Gram-negative bacteria; R53.2 Functional quadriplegia; N39.0 Urinary tract infection, site not specified; T83.511A Infection and inflammatory reaction due to indwelling urethral catheter, initial encounter; I47.20 Ventricular tachycardia, unspecified; R40.3 Persistent vegetative state; J96.11 Chronic respiratory failure with hypoxia; R65.20 Severe sepsis without septic shock; E78.5 Hyperlipidemia, unspecified; E11.9 Type 2 diabetes mellitus without complications; D63.8 Anemia in other chronic diseases classified elsewhere; K59.09 Other constipation; J42 Unspecified chronic bronchitis; G20 Parkinson's disease; M81.0 Age-related osteoporosis without current pathological fracture; G89.29 Other chronic pain; N31.9 Neuromuscular dysfunction of bladder, unspecified; N20.0 Calculus of kidney; Z20.822 Contact with and (suspected) exposure to COVID-19; Z93.0 Tracheostomy status; Z79.4 Long term (current) use of insulin; Z74.01 Bed confinement status; Z93.1 Gastrostomy status; Z79.82 Long term (current) use of aspirin
CPT/HCPCS: 36415; 36569; 71045; 74018; 80048; 80053; 80202; 81001; 82607; 82746; 82948; 83540; 83605; 83735; 84466; 85025; 85045; 85610; 85730; 87040; 87070; 87071; 87086; 87186; 87205; 93005; 94640; 94799; 96365; 99252; 99285; J0692; J1650; J1817; J2185; J3260; J3370; J3480; J7030; J7050; J7121; Q9963

== ENCOUNTER 2023-02-23 11:18 | Observation (INO) | payer MEDICARE, OTHER, BC ==
[~2023-02-23] VITALS: Ht 165.1 cm; Wt 74.8 kg
[~2023-02-23 11:18] MED LIST changes: +AMIODARONE HCL200 MG PO; +FLUCONAZOLE100 MG GT; +Guaifenesin/Dextromethorphan PO
[2023-02-23 12:17] LABS: BASOPHILS % 0.4 % (0.0-1.0); EOSINOPHILS # (AUTO) 0.4 (0.0-0.4); EOSINOPHILS % 5.5 % (0.0-6.0); HEMATOCRIT 39.4 % (38.2-49.6); LYMPHOCYTES # (AUTO) 2.7 (1.0-3.2); MEAN CORPUSCULAR HEMOGLOBIN 28.4 pg (28-32); MEAN CORPUSCULAR HGB CONC 30.5 g/dL (31-35); MEAN CORPUSCULAR VOLUME 93.4 fL (81-99); MONOCYTES # (AUTO) 0.5 (0.2-0.8); MONOCYTES % 6.2 % (4.4-11.3); NEUTROPHILS # (AUTO) 3.7 (2.1-6.9); NEUTROPHILS % 50.5 % (38.7-80.0); PLATELET COUNT 307 x10e3/uL (140-360); RED BLOOD COUNT 4.22 x10e6/uL (4.3-5.7); RED CELL DISTRIBUTION WIDTH 13.8 % (11.7-14.4)
[2023-02-23 12:59] LABS: ALBUMIN 3.5 g/dL (3.5-5.0); ALBUMIN/GLOBULIN RATIO 0.7 (0.8-2.0); ANION GAP 13.3 mmol/L (8-16); CALCIUM 9.2 mg/dL (8.4-10.2); CREATININE, SERUM 0.63 mg/dL (0.72-1.25); POTASSIUM 4.3 mmol/L (3.5-5.1)
[2023-02-23] MEDS ORDERED: SODIUM CHLORIDE 0.9% 1000ML 1,000 ML IV SCH (15:30)
[2023-02-23 20:00] VITALS: BP 137/88
[2023-02-23 21:00] VITALS: BP 137/88
[2023-02-23] MEDS: SODIUM CHLORIDE 0.9% 1000ML 1,000 ML IV SCH (21:42)
[2023-02-24] VITALS (8 sets, daily range): BP systolic 125–169; BP diastolic 70–93
[2023-02-24] MEDS: SODIUM CHLORIDE 0.9% 1000ML 1,000 ML IV SCH ×3 (05:23→21:12)
[2023-02-24 06:39] LABS: BASOPHILS % 0.3 % (0.0-1.0); EOSINOPHILS # (AUTO) 0.1 (0.0-0.4); EOSINOPHILS % 1.2 % (0.0-6.0); HEMATOCRIT 46.2 % (38.2-49.6); HEMOGLOBIN 14.4 g/dL (14.0-18.0); LYMPHOCYTES # (AUTO) 1.7 (1.0-3.2); LYMPHOCYTES % 15.5 % (18.0-39.1); MEAN CORPUSCULAR HGB CONC 31.2 g/dL (31-35); MEAN CORPUSCULAR VOLUME 93.1 fL (81-99); MONOCYTES # (AUTO) 0.5 (0.2-0.8); MONOCYTES % 4.4 % (4.4-11.3); NEUTROPHILS # (AUTO) 8.4 (2.1-6.9); NEUTROPHILS % 78.3 % (38.7-80.0); PLATELET COUNT 223 x10e3/uL (140-360); RED BLOOD COUNT 4.96 x10e6/uL (4.3-5.7); RED CELL DISTRIBUTION WIDTH 13.9 % (11.7-14.4)
[2023-02-24 06:56] LABS: ALBUMIN 3.4 g/dL (3.5-5.0); ALBUMIN/GLOBULIN RATIO 0.6 (0.8-2.0); ANION GAP 11.8 mmol/L (8-16); CALCIUM 9.5 mg/dL (8.4-10.2); CREATININE, SERUM 0.67 mg/dL (0.72-1.25); POTASSIUM 3.8 mmol/L (3.5-5.1)
[2023-02-24] MEDS ORDERED: HYDRALAZINE HCL 20 MG/ML VIAL IV PRN (08:15)
[2023-02-24] MEDS ORDERED: DEXTROSE 50% SYRINGE 50 ML IV PRN (08:15)
[2023-02-24] MEDS ORDERED: ALBUTEROL/IPRATROPIUM 3 ML NEB NEB PRN (09:00)
[2023-02-24] MEDS: FAMOTIDINE 20 MG/2 ML VIAL IV SCH (10:24)
[2023-02-24] MEDS: INSULIN REGULAR, HUMAN 100 UNIT/1 ML SQ SCH ×3 (12:00→23:49)
[2023-02-25 02:37] VITALS: BP 142/92
[2023-02-25] MEDS: SODIUM CHLORIDE 0.9% 1000ML 1,000 ML IV SCH ×2 (05:21→12:30)
[2023-02-25] MEDS: INSULIN REGULAR, HUMAN 100 UNIT/1 ML SQ SCH ×2 (05:22→12:00)
[2023-02-25 05:37] LABS: BASOPHILS % 0.5 % (0.0-1.0); EOSINOPHILS # (AUTO) 0.2 (0.0-0.4); EOSINOPHILS % 2.9 % (0.0-6.0); HEMATOCRIT 33.3 % (38.2-49.6); HEMOGLOBIN 10.1 g/dL (14.0-18.0); LYMPHOCYTES # (AUTO) 1.3 (1.0-3.2); LYMPHOCYTES % 20.9 % (18.0-39.1); MEAN CORPUSCULAR HEMOGLOBIN 28.6 pg (28-32); MEAN CORPUSCULAR HGB CONC 30.3 g/dL (31-35); MEAN CORPUSCULAR VOLUME 94.3 fL (81-99); MONOCYTES # (AUTO) 0.4 (0.2-0.8); MONOCYTES % 6.7 % (4.4-11.3); NEUTROPHILS # (AUTO) 4.3 (2.1-6.9); NEUTROPHILS % 68.5 % (38.7-80.0); PLATELET COUNT 224 x10e3/uL (140-360); RED BLOOD COUNT 3.53 x10e6/uL (4.3-5.7); RED CELL DISTRIBUTION WIDTH 13.6 % (11.7-14.4)
[2023-02-25 06:06] LABS: ANION GAP 13.4 mmol/L (8-16); CALCIUM 8.6 mg/dL (8.4-10.2); CREATININE, SERUM 0.59 mg/dL (0.72-1.25); POTASSIUM 3.4 mmol/L (3.5-5.1)
[2023-02-25 06:42] VITALS: BP 152/89
[2023-02-25 08:29] VITALS: BP 154/94
[2023-02-25] MEDS: FAMOTIDINE 20 MG/2 ML VIAL IV SCH (09:35)
[2023-02-25 12:06] VITALS: BP 133/84
[2023-02-26] MEDS ORDERED: FAMOTIDINE 20 MG TAB GT SCH (09:00)
== END 2023-02-25 12:53 ==
LOC: ER 11:24 → ERHOLD 15:33 → MED/SURG3 19:44
PROVIDERS: ADMIT Family Medicine Adult Medicine; ATTEND Family Medicine Adult Medicine
DX: K94.23 Gastrostomy malfunction (principal); E11.9 Type 2 diabetes mellitus without complications; E43 Unspecified severe protein-calorie malnutrition; D63.8 Anemia in other chronic diseases classified elsewhere; G82.50 Quadriplegia, unspecified; G20 Parkinson's disease; Z87.820 Personal history of traumatic brain injury; J96.10 Chronic respiratory failure, unspecified whether with hypoxia or hypercapnia; K29.70 Gastritis, unspecified, without bleeding; K44.9 Diaphragmatic hernia without obstruction or gangrene; K20.90 Esophagitis, unspecified without bleeding; Z20.822 Contact with and (suspected) exposure to COVID-19
CPT/HCPCS: 0223U; 36415 ×3; 43246; 80048; 80053 ×2; 82948 ×2; 85025 ×3; 94799 ×3; 99284; G0378 ×3; J7030 ×3

== ENCOUNTER 2023-05-04 15:15 | Emergency (ER) | payer MEDICARE, OTHER, BC ==
[~2023-05-04] VITALS: Ht 165.1 cm; Wt 74.8 kg
[2023-05-04] MEDS ORDERED: Vancomycin IV 1 GM in SODIUM CHLORIDE 0.9% 250ML 250 ML IV ONE (16:00)
[2023-05-04 16:01] LABS: BASOPHILS % 0.3 % (0.0-1.0); EOSINOPHILS # (AUTO) 0.2 (0.0-0.4); EOSINOPHILS % 2.9 % (0.0-6.0); HEMATOCRIT 44.4 % (38.2-49.6); HEMOGLOBIN 13.8 g/dL (14.0-18.0); LYMPHOCYTES # (AUTO) 2.4 (1.0-3.2); LYMPHOCYTES % 34.6 % (18.0-39.1); MEAN CORPUSCULAR HGB CONC 31.1 g/dL (31-35); MEAN CORPUSCULAR VOLUME 90.1 fL (81-99); MONOCYTES # (AUTO) 0.3 (0.2-0.8); MONOCYTES % 4.7 % (4.4-11.3); NEUTROPHILS # (AUTO) 3.9 (2.1-6.9); NEUTROPHILS % 57.2 % (38.7-80.0); PLATELET COUNT 252 x10e3/uL (140-360); RED BLOOD COUNT 4.93 x10e6/uL (4.3-5.7); RED CELL DISTRIBUTION WIDTH 13.2 % (11.7-14.4)
[2023-05-04 16:18] LABS: ALANINE AMINOTRANSFERASE 39 IU/L (0-55); ALBUMIN 3.8 g/dL (3.5-5.0); ALBUMIN/GLOBULIN RATIO 0.7 (0.8-2.0); ALKALINE PHOSPHATASE 103 IU/L (40-150); ANION GAP 12.6 mmol/L (8-16); BLOOD UREA NITROGEN 16 mg/dL (7-26); BUN/CREATININE RATIO 24 (6-25); CALCIUM 10.5 mg/dL (8.4-10.2); CARBON DIOXIDE 36 mmol/L (22-29); CHLORIDE 96 mmol/L (98-107); CREATININE, SERUM 0.67 mg/dL (0.72-1.25); GLUCOSE 95 mg/dL (74-118); POTASSIUM 4.6 mmol/L (3.5-5.1); SODIUM 140 mmol/L (136-145)
[2023-05-04] MEDS ORDERED: MEROPENEM 1 GM VIAL ONE (16:29)
[2023-05-04] MEDS ORDERED: SODIUM CHLORIDE 0.9% 100 ML ONE (16:30)
[2023-05-04] MEDS ORDERED: SODIUM CHLORIDE 0.9% 250ML 250 ML ONE (16:30)
[2023-05-04] MEDS ORDERED: Vancomycin IV 1 GM VIAL ONE (16:30)
[2023-05-04] MEDS ORDERED: MEROPENEM 1 GM in SODIUM CHLORIDE 0.9% 100 ML IV ONE (17:00)
[2023-05-04 17:10] VITALS: PULSE 92; RESP 6; O2SAT 100
[2023-05-04] MEDS ORDERED: CEFDINIR250 MG/5 M GT (17:56)
[2023-05-04] MEDS ORDERED: SULFATRIM PEDI473 ML GT (17:56)
[2023-05-04 20:00] VITALS: PULSE 97; RESP 18; O2SAT 100
== END 2023-05-04 19:59 | disposition home or self-care (01) ==
LOC: ER 15:25
DX: L03.116 Cellulitis of left lower limb (principal); E11.9 Type 2 diabetes mellitus without complications; E78.5 Hyperlipidemia, unspecified; G20 Parkinson's disease; G82.50 Quadriplegia, unspecified; Z20.822 Contact with and (suspected) exposure to COVID-19
CPT/HCPCS: 0223U; 36415; 80053; 85025; 87040; 93971; 94799; 99284; J2185; J3370; J7050 ×2